=== PATIENT | male | born 1960 | race Caucasian/White ===

== ENCOUNTER 2022-01-08 10:00 | Inpatient (IN) | payer BC, SELFPAY ==
[2022-01-08] VITALS (11 sets, daily range): BP systolic 133–175; BP diastolic 83–102; PULSE 59–97; RESP 16–20; TEMP 36.8–37.1; O2SAT 95–98; BMI 28.1
--- NOTE | 2022-01-08 10:20 | XR_ITS ---
WS: [id number] Portable AP upright chest, 01/08/2022 Clinical Data: missed stroke Comparison: None. Findings: No nodules, masses or effusions are seen. The heart is normal. The pulmonary vascularity is not increased. No pneumonia or pneumothorax is seen. Monitor leads are on the chest wall. XR/XR chest 1V portable [id number] Impression: Negative chest.
--- NOTE | 2022-01-08 10:21 | CT_ITS ---
WS: [email or web address] CT scan of the head, 01/08/2022 Clinical Data: Symptoms of Acute Stroke Comparison: None. DLP: 802.[address] scans at [facility] use at least one of these dose optimization techniques: automated e xposure control; mA and/or kV adjustment per patient size (includes targeted exams where dose is matc hed to clinical indication); or iterative reconstruction. Findings: The ventricular system is minimally dilated without shift. No recent infarct or hemorrhage is seen. T here are no abnormal intracerebral masses. The cerebellum and brainstem are not remarkable. Bony windows of the skull and skull base show no fractures or erosions. The mastoid air cells, help desk intern al auditory canals, sella turcica, intraorbital contents, and paranasal sinuses are unremarkable. CT/CT head wo con* [id number] Impression: 1. Mild cerebral atrophy, no acute infarct or hemorrhage is seen. 2. The emergency room was notified at 1040 hours.
--- NOTE | 2022-01-08 10:21 | ECG_ITS ---
[facility] Test Date: 2022-01-08 Pat Name: Eliazar Gomez Department: Room: Gender: Male Manager Outpatient: : 1960 Requested By: Roberto Strauss Order Number: [id number] Mellissa MD: Ameya Woods M.D. Measurements Intervals [place] Rate: 62 P: 47 AR: 162 QRS: -16 QRSD: 78 T: 66 QT: 402 QTc: 409 Interpretive Statements SINUS RHYTHM No previous ECG available for comparison Electronically Signed On 01-08-2022 20:43:21 CDT by Ameya Woods M.D. [id number]
[2022-01-08 10:25] LABS: Glucose Point of Care 312 mg/dL (70-110)
--- NOTE | 2022-01-08 10:26 | W.ED.GENADLT ---
HPI - General Adult General: Chief complaint: Weakness Stated complaint: stoke like symptoms Time Seen by Provider: 01/08/22 10:12 History of Present Illness: Patient is a 61-year-old male with hx of HTN not on medication presents the emergency room for evaluation of left-sided weakness. Patient was last seen normal around 10:00pm when patient was at home with his daughter and his . Around 2 AM this morning, patient noted that he has had left-sided weakness and facial droop. Since, patient symptom has not improved. Patient denies any anticoagulation. Patient denies any nausea/vomiting, fever/chill, chest pain, shortness of breath, abdominal pain, dysuria/hematuria/polyuria, diarrhea/melena/hematochezia. Onset:last seen normal was 10 pm Duration:ongoing Location:home Severity:moderate Associated symptoms: Deny chest pain, dyspnea, nausea, rash, palpitations or vomiting Review of Systems Const: Denies: fever(s) or chills Eyes: Denies: change in vision ENMT: Denies: mouth pain Card: Denies: chest pain or palpitations Resp: Denies: dyspnea or non-productive cough GI: Denies: abdominal pain, nausea, vomiting or diarrhea : Denies: dysuria Musc: Denies: extremity pain Skin/Breast: Denies: rash or new lesions Neuro: Reports: weakness in extremities (+L arm/leg weakness, +L sided facial droop) Psych: Reports: other (Normal mood) Santiago/Lymph: Denies: easy bruising PFSH ED PFSH: Medical History (Updated 01/08/22 @ 16:10 by Rashaun Trejo MD) Hypertension Type 2 diabetes mellitus Surgical History (Updated 01/08/22 @ 16:10 by Rashaun Trejo MD) No significant past surgical history Family History (Updated 01/08/22 @ 16:10 by Rashaun Trejo MD) Other CAD (coronary artery disease) Hypertension Stroke Social History (Updated 01/08/22 @ 16:11 by Rashaun Trejo MD) Smoking and tobacco status: former smoker Alcohol intake: current Alcohol intake frequency: few times a week Caregiver/support person: Yes Lives independently: Yes Household members: spouse Housing: House Marital status: Current occupational status: retired Physical Exam Const: COMMON NORMALS: alert HENMT: COMMON NORMALS: atraumatic HEAD & SCALP: atraumatic MOUTH: moist mucous membranes not abnormal Eye: COMMON NORMALS: EOMs intact bilaterally and conjunctivae normal CONJUNCTIVA: Yes conjunctivae normal Neck/C-Spine: COMMON NORMALS: full ROM and supple Resp: COMMON NORMALS: normal respiratory effort and clear to auscultation bilaterally AUSCULTATION: clear to auscultation bilaterally Cardio: COMMON NORMALS: regular rate RATE: regular rate GI: COMMON NORMALS: Soft to palpation and non-tender PALPATION: Yes Soft to palpation Extremity: COMMON NORMALS: full ROM Neuro: SENSORIUM/ORIENTATION: Yes alert OTHER: NIHSS 5 1. Level of Consciousness A) LOC Responsiveness 0 B) LOC Questions 0 C) LOC Commands 0 2. Horizontal Eye Movement 0 3. Visual field test 0 4. Facial Palsy 1 5. Motor Arm 1 6. Motor Leg 1 7. Limb Ataxia 2 8. Sensation 0 9. Language 0 10. Speech 0 11. Extinction and Inattention 0 PSYCH: Normal mood and affect. Psych: COMMON NORMALS: speech normal SPEECH: Yes normal speech MOOD & AFFECT: Yes euthymic mood Course Vital Signs: Vital signs: Vital Signs Temperature 97.7 F 01/12/22 11:51 Pulse Rate 60 01/12/22 11:51 Respiratory Rate 19 H 01/12/22 11:51 Blood Pressure 137/74 01/12/22 11:51 Pulse Oximetry 95 01/12/22 11:51 [facility] - General Adult Medical Decision Making 61-year-old male with history of hypertension presenting to the emergency room with concerns of left-sided weakness and facial droop. On physical exam, patient has NIH stroke scale of 5. Patient is outside of the stroke window at this time. CT head did not show any signs of brain bleed. Case was discussed with [facility] provider Dr. Noe who recommended admission and close observation. MR should pontine stroke. Patient is outside the window for TPA. Patient does not have any large vessel occlusion. She will be admitted for medical management. Disposition: admission Lab Data : 01/11/22 03:44 01/11/22 03:44 Radiology Impressions Chest X-Ray 01/08/22 10:20 Impression: Negative chest. Head MRI 01/08/22 11:18 IMPRESSION: 1. Acute focal RIGHT pontine infarct without hemorrhage. 2. Otherwise. Mild atrophy and small vessel ischemic disease. 3. No acute thrombus is noted in the basilar or posterior cerebral artery. Head MRA 01/08/22 11:19 IMPRESSION: 1. Moderate stenosis and narrowing involving the distal RIGHT vertebral artery. No thrombus identified. Stenosis may be congenital or due to thrombus resulting in stenosis. No occlusion. 2. Patent basilar artery. 3. No aneurysms. Neck MRA 01/08/22 11:19 IMPRESSION: Nondiagnostic evaluation of the carotid arteries. Head CT 01/09/22 11:19 IMPRESSION: When compared with 01/08/2022, there is an evolving infarct in the right ave. No associated hemorrhage. Laboratory Results WBC 7.3 10^3/uL (4.0-10.0) 01/08/22 10:20 RBC 4.78 10^6/uL (4.1-5.3) 01/08/22 10:20 Hgb 14.7 g/dL (11.7-16.6) 01/08/22 10:20 Hct 42.2 % (42.0-52.0) 01/08/22 10:20 MCV 88.3 fl (80-94) 01/08/22 10:20 MCH 30.8 pg (28.0-34.0) 01/08/22 10:20 MCHC 34.8 g/dL (30.0-36.0) 01/08/22 10:20 RDW 13.2 % (12.1-15.1) 01/08/22 10:20 Plt Count 275 10^3/cmm (130-400) 01/08/22 10:20 MPV 10.1 fL (7.4-10.4) 01/08/22 10:20 Neut % (Auto) 70.9 % 01/08/22 10:20 Lymph % (Auto) 20.0 % 01/08/22 10:20 [place] % (Auto) 7.1 % 01/08/22 10:20 Eos % (Auto) 1.1 % 01/08/22 10:20 Baso % (Auto) 0.5 % 01/08/22 10:20 Neut # (Auto) 5.18 10^3/uL (1.8-7.7) 01/08/22 10:20 Lymph # (Auto) 1.5 10^3/uL (0.8-4.8) 01/08/22 10:20 [place] # (Auto) 0.5 10^3/uL (0.2-0.9) 01/08/22 10:20 Eos # (Auto) 0.1 10^3/uL (0.0-0.8) 01/08/22 10:20 Baso # (Auto) 0.0 10^3/uL (0.0-0.1) 01/08/22 10:20 Nucleated RBC % (auto) 0 % 01/08/22 10:20 Nucleated RBCs # 0.0 /100WBC 01/08/22 10:20 PT 14.50 SECONDS (12.1-14.9) 01/08/22 10:20 INR 1.09 (0.8-1.2) 01/08/22 10:20 APTT 26.0 SECONDS (23.9-36.7) 01/08/22 10:20 Sodium 133 mmol/L (136-145) L 01/08/22 10:20 Potassium 4.2 mmol/L (3.5-5.1) 01/08/22 10:20 Chloride 98 mmol/L (98-107) 01/08/22 10:20 Carbon Dioxide 22 mmol/L (22-29) 01/08/22 10:20 Anion Gap 17.2 (5-19) 01/08/22 10:20 BUN 14 mg/dL (8-23) 01/08/22 10:20 Creatinine 0.9 mg/dL (0.7-1.2) 01/08/22 10:20 GFR Calculation 85.2 mL/min (90-130) L 01/08/22 10:20 Glucose 322 mg/dL (65-115) H 01/08/22 10:20 POC Glucose 312 mg/dL (70-110) H 01/08/22 10:17 Calculated Osmolality 289 mOsm/kg (285-295) 01/08/22 10:20 Calcium 9.5 mg/dL (8.5-10.5) 01/08/22 10:20 Iron 176 ug/dL (59-158) H 01/08/22 10:20 TIBC 318 mcg/dl 01/08/22 10:20 % Saturation 55.3 % (20-50) H 01/08/22 10:20 Unsat Iron Binding 142 ug/dL (112-347) 01/08/22 10:20 Total Bilirubin 0.7 mg/dL (0.15-1.2) 01/08/22 10:20 AST 16 U/L (0-40) 01/08/22 10:20 ALT 26 U/L (0-41) 01/08/22 10:20 Alkaline Phosphatase 68 IU/L (40-130) 01/08/22 10:20 Troponin T Baseline 15 ng/L (0-15) 01/08/22 10:20 Total Protein 7.1 g/dL (6.6-8.7) 01/08/22 10:20 Albumin 4.8 g/dL (3.5-5.2) 01/08/22 10:20 Globulin 2.3 g/dL (1.3-4.6) 01/08/22 10:20 TSH 1.18 uIU/mL (0.27-4.20) 01/08/22 10:20 Ethyl Alcohol < 10 mg/dL (0-10) 01/08/22 10:20 Imaging Data Other Imaging: Radiologist's impression: [address] [place] [address] Magnetic Resonance Report Signed Patient: Eliazar Gomez Unit #: [id number] : 1960 Age/Sex: 61 / M ADM Date: 01/08/22 Loc: ER Room/Bed: Attending Dr: Ordering Provider/Ordering MD: Roberto Strauss MD Date of Service: 01/08/22 Procedure(s): MR head wo con* [id number] Accession Number(s): [id number] Report Number: [id number] WS: [id number] MRI BRAIN WITHOUT CONTRAST HISTORY: ischemic stroke COMPARISON: Noncontrast CT 01/08/2022. TECHNIQUE: Diffusion imaging, multiplanar T1, T2 and FLAIR imaging obtained. Acute ischemic stroke in the RIGHT ave. Diffusion-weighted abnormality is focal to the ave and does not cross the midline. No additional acute infarcts or diffusion-weighted abnormalities. Mild atrophy and very minimal small vessel ischemic disease otherwise. Ventricles and extra-axial spaces are normal. No inferior displacement of cerebellar tonsils. The sella turcica and pituitary gland are unremarkable. No signal abnormality in the dural venous sinuses. Very small caliber distal RIGHT vertebral artery. No thrombus is evident in the dominant LEFT vertebral artery. No acute thrombosis is noted within the branches of the basilar or posterior cerebral artery. Paranasal sinuses: Clear. Mastoid air cells: Normal. Calvarium and scalp: Intact. MR/MR head wo con* [id number] IMPRESSION: ? 1.? Acute focal RIGHT pontine infarct without hemorrhage. 2.? Otherwise. Mild atrophy and small vessel ischemic disease. 3.? No acute thrombus is noted in the basilar or posterior cerebral artery. ? ? Dictated By: Corine Storm DO Signed By: Corine Storm DO Signed Date/Time: 01/08/22 1309 DD/ 1259 JasonEliazar Lima??62??M??1960 ? Allergy/Adv: No Known Allergies Close Carotid Doppler Study (Signed) Maximino Milian - 01/12/[address] (Signed) Mag Light - 01/09/22 Neck Magnetic Resonance Angiography (Signed) Corine Storm - 01/08/22 Head Magnetic Resonance Angiography (Signed) Corine Storm - 01/08/22 Head MRI (Signed) Corine Storm - 01/08/[address] (Signed) Cassia Read - 01/08/22 Chest X-Ray (Signed) Cassia Read - 01/08/22 Launch?[place] [address] XRay Report Signed Patient: Eliazar Gomez Janie Unit #: [id number] : 1960 Age/Sex: 61 / M ADM Date: 01/08/22 Loc: ER Room/Bed: Attending Dr: Ordering Provider/Ordering MD: Roberto Strauss MD Date of Service: 01/08/22 Procedure(s): XR chest 1V portable [id number] Accession Number(s): [id number] Report Number: [id number] WS: [email or web address] Portable AP upright chest, 01/08/2022 Clinical Data: missed stroke Comparison: None. Findings: No nodules, masses or effusions are seen. The heart is normal. The pulmonary vascularity is not increased. No pneumonia or pneumothorax is seen. Monitor leads are on the chest wall. XR/XR chest 1V portable [id number] Impression: Negative chest. ? Dictated By: Cassia Read MD Signed By: Cassia Read MD Signed Date/Time: 01/08/22 1046 DD/ [address] [address] [address] Scan Report Signed Patient: Eliazar Gomez Unit #: [id number] : 1960 Age/Sex: 61 / M ADM Date: 01/08/22 Loc: ER Room/Bed: Attending Dr: Ordering Provider/Ordering MD: Roberto Strauss MD Date of Service: 01/08/22 Procedure(s): CT head wo con* [id number] Accession Number(s): [id number] Report Number: [id number] WS: [email or web address] CT scan of the head, 01/08/2022 Clinical Data: Symptoms of Acute Stroke Comparison: None. DLP: 802.[address] scans at [facility] use at least one of these dose optimization techniques: automated exposure control; mA and/or kV adjustment per patient size (includes targeted exams where dose is matched to clinical indication); or iterative reconstruction. Findings: The ventricular system is minimally dilated without shift. No recent infarct or hemorrhage is seen. There are no abnormal intracerebral masses. The cerebellum and brainstem are not remarkable. Bony windows of the skull and skull base show no fractures or erosions. The mastoid air cells, internal auditory canals, sella turcica, intraorbital contents, and paranasal sinuses are unremarkable. CT/CT head wo con* [id number] Impression: ? 1. Mild cerebral atrophy, no acute infarct or hemorrhage is seen. 2. The emergency room was notified at 1040 hours. ? Dictated By: Cassia Read MD Signed By: Cassia Read MD Signed Date/Time: 01/08/22 1035 DD/ 1030 Discharge Plan Discharge Patient Disposition: Admitted As Inpatient Admit Provider: Rashaun Trejo Clinical Impression: Ischemic stroke Condition: Stable Discharge Diet: Cardiac and Diabetic Discharge Activity: Increase activity as tolerated Coding Level of Care Code ED Concrete Hopper Operator for Chg Fwd Exam Comprehensive
[2022-01-08 10:39] LABS: Basophils % 0.5 %; Eosinophils # 0.1 10^3/uL (0.0-0.8); Eosinophils % 1.1 %; Hematocrit 42.2 % (42.0-52.0); Hemoglobin 14.7 g/dL (11.7-16.6); Lymphocytes # 1.5 10^3/uL (0.8-4.8); Mean Corpuscular HGB Conc 34.8 g/dL (30.0-36.0); Mean Corpuscular Hemoglobin 30.8 pg (28.0-34.0); Mean Corpuscular Volume 88.3 fl (80-94); Mean Platelet Volume 10.1 fL (7.4-10.4); Monocytes # 0.5 10^3/uL (0.2-0.9); Monocytes % 7.1 %; Neutrophils # 5.18 10^3/uL (1.8-7.7); Neutrophils % 70.9 %; Nucleated Red Blood Cells % 0 %; Platelet Count 275 10^3/cmm (130-400); Red Blood Count 4.78 10^6/uL (4.1-5.3); Red Cell Distribution Width 13.2 % (12.1-15.1); White Blood Count 7.3 10^3/uL (4.0-10.0)
[2022-01-08 10:47] LABS: INR 1.09 (0.8-1.2)
--- NOTE | 2022-01-08 10:53 | PC.PHAR ---
pt and pts verified medications-pts states the pt was just started on a 81mg aspirin at bedtime on 01/07/22-pt and pts states the dr just increased lisinopril 40mg daily on 01/07/22-pt states he has been taking 20mg daily ext med history shows last filled 07/24/21 30d/s pt states he had a build up of this medication-notes are made in the pharmacy comments
[2022-01-08 11:12] LABS: Alanine Aminotransferase 26 U/L (0-41); Albumin Level 4.8 g/dL (3.5-5.2); Alkaline Phosphatase 68 IU/L (40-130); Anion Gap 17.2 (5-19); Aspartate Amino Transferase 16 U/L (0-40); Blood Urea Nitrogen 14 mg/dL (8-23); Calcium 9.5 mg/dL (8.5-10.5); Carbon Dioxide 22 mmol/L (22-29); Chloride 98 mmol/L (98-107); Globulin 2.3 g/dL (1.3-4.6); Glomerular Filtration Rate 85.2 mL/min (90-130); Glucose 322 mg/dL (65-115); Osmolality Calculated 289 mOsm/kg (285-295); Potassium 4.2 mmol/L (3.5-5.1); Sodium 133 mmol/L (136-145); Total Bilirubin 0.7 mg/dL (0.15-1.2); Total Protein 7.1 g/dL (6.6-8.7)
[2022-01-08 11:13] LABS: Troponin(5th) Baseline 15 ng/L (0-15)
--- NOTE | 2022-01-08 11:13 | PC.NURSE ---
4910 Neurology at [place] contacted and will evaluated patient via telemed, MRI is recommended. Patient/family updated on plan of care. Patient remains stable
--- NOTE | 2022-01-08 11:18 | MR_ITS ---
WS: [email or web address] MRI BRAIN WITHOUT CONTRAST HISTORY: ischemic stroke COMPARISON: Noncontrast CT 01/08/2022. TECHNIQUE: Diffusion imaging, multiplanar T1, T2 and FLAIR imaging obtained. Acute ischemic stroke in the RIGHT ave. Diffusion-weighted abnormality is focal to the ave and does not cross the midline. No additional acute infarcts or diffusion-weighted abnormalities. Mild atrophy and very minimal small vessel ischemic disease otherwise. Ventricles and extra-axial spaces are normal. No inferior displacement of cerebellar tonsils. The sella turcica and pituitary gland are unremarkabl e. No signal abnormality in the dural venous sinuses. Very small caliber distal RIGHT vertebral artery. No thrombus is evident in the dominant LEFT vertebral artery. No acute thrombosis is noted within the branches of the basilar or posterior cerebral artery. Paranasal sinuses: Clear. Mastoid air cells: Normal. Calvarium and scalp: Intact. MR/MR head wo con* [id number] IMPRESSION: 1. Acute focal RIGHT pontine infarct without hemorrhage. 2. Otherwise. Mild atrophy and small vessel ischemic disease. 3. No acute thrombus is noted in the basilar or posterior cerebral artery.
--- NOTE | 2022-01-08 11:19 | MR_ITS ---
WS: [email or web address] MRA CAROTID ARTERIES with contrast. HISTORY: ischemic stroke COMPARISON: None available. TECHNIQUE: MRA is performed with intravenous gadolinium. MIP and source images are reviewed. ProHance 30 cc IV. This is essentially a nondiagnostic evaluation of the carotid arteries. 2-D rnfy-qz-geltth and postco ntrast imaging of the carotid arteries is performed. There is very little contrast noted within the v ertebral or carotid arteries. There is a short segment occlusion involving the distal RIGHT vertebral artery but due to the quality of this examination I cannot confirm this is not just simply artifact. MR/MR angio neck w con* [id number] IMPRESSION: Nondiagnostic evaluation of the carotid arteries.
--- NOTE | 2022-01-08 11:19 | MR_ITS ---
WS: [email or web address] MRA ANGIOGRAPHY [place] OF [place] HISTORY: ischemic stroke COMPARISON: MRI brain TECHNIQUE: 3-D MR angiography is performed of the [place]. All images are reviewed including source images. Small caliber distal RIGHT vertebral artery without occlusion. Artery becomes very small caliber as i t crosses anterior to the brainstem to the LEFT before joining the LEFT vertebral artery. Basilar art shanique is patent with no thrombus. Neither posterior inferior cerebellar artery identified. The superior cerebellar arteries are both identified with the RIGHT being smaller caliber. Intracranial portion of the internal carotid arteries are normal course and caliber. No significant a therosclerosis, stenosis or aneurysm identified. Middle and anterior cerebral arteries are both paten t with no significant disease. Anterior communicating artery is also normal. Posterior communicating arteries are both small caliber but patent. MR/MR angio head wo con [id number] IMPRESSION: 1. Moderate stenosis and narrowing involving the distal RIGHT vertebral artery . No thrombus identified. Stenosis may be congenital or due to thrombus resulti ng in stenosis. No occlusion. 2. Patent basilar artery. 3. No aneurysms.
--- NOTE | 2022-01-08 12:21 | ECG_ITS ---
[facility] Test Date: 2022-01-08 Pat Name: Eliazar Gomez Department: Room: Gender: Male Treatment Supervisor: : 1960 Requested By: Roberto Strauss Order Number: [id number] Mellissa MD: Ameya Woods M.D. Measurements Intervals [place] Rate: 80 P: 48 [place]: 159 QRS: 1 QRSD: 83 T: 73 QT: 384 QTc: 444 Interpretive Statements SINUS RHYTHM Compared to ECG 01/08/2022 10:47:56 No significant changes Electronically Signed On 01-08-2022 20:46:12 CDT by Ameya Woods M.D. [id number]
[2022-01-08 14:21] LABS: Troponin 5 2HR 13.17 ng/L (0-15)
[2022-01-08 14:43] LABS: Troponin 5 2HR Delta -1.83 ABS# (0-10)
[2022-01-08 14:48] LABS: Protein Urine Neg (Negative); Specific Gravity, Urine 1.015 (1.005-1.030); Urine Appearance Clear (CLEAR); Urine Color Yellow (Yellow); pH Urine 5 (5-7)
[2022-01-08 14:49] LABS: Add Urine Microscopic? YES; Bilirubin Urine Neg (Negative); Blood Urine Neg (Negative); Glucose Urine UA 4+ (Normal); Ketones Urine Negative (Negative); Leukocyte Esterase Urine Negative (Negative); Nitrate Urine Negative (Negative); Sulfosalicylic Acid Urine Negative (Negative); Urobilinogen Urine Norm (Negative)
[2022-01-08 14:51] LABS: Squamous Epithelial Cell Urine 0-4 /hpf (0-5)
--- NOTE | 2022-01-08 16:01 | USCV_ITS ---
Eliazar Gomez Age: 61 Gender: M : 1960 Exam Date: 01/08/2022 16:42 Ordering Phys: Rashaun Trejo MD Technologist: KEYSHAWN Exam Location: [facility] [place] Indication: Stroke BP: 145 / 89 HR: 53 Rhythm: Sinus Technical Quality: Adequate MEASUREMENTS (Male / Female) Normal Values 2D ECHO LV Diastolic Diameter PLAX 4.1 cm 4.2 - 5.9 / 3.9 - 5.3 cm LV Systolic Diameter PLAX 2.6 cm IVS Diastolic Thickness 1.1 cm 0.6 - 1.0 / 0.6 - 0.9 cm IVS Systolic Thickness 1.5 cm LVPW Diastolic Thickness 1.3 cm 0.6 - 1.0 / 0.6 - 0.9 cm LVPW Systolic Thickness 1.4 cm LVOT Diameter 2.0 cm LV Ejection Fraction 2D Teich 66.3 % LV Ejection Fraction MOD 2C 64.4 % LV Ejection Fraction 2C AL 65.4 % LA Diameter 3.8 cm Aorta at Sinotubular Diameter 2.7 cm IVC Diameter 1.9 cm M-MODE Aortic Annulus Diameter 3.1 cm LA Ao Ratio MM 1.2 MV E Point Septal Separation 0.4 cm DOPPLER AV Peak Velocity 116.0 cm/s LVOT Peak Velocity 101.0 cm/s AV Area Cont Eq vti 3.5 cm squared AV Area Cont Eq pk 2.8 cm squared MV Area PHT 4.2 cm squared Mitral E to A Ratio 1.0 MV E' Velocity 46.8 cm/s Mitral E to MV E' Ratio 9.9 Mitral E to LV E' Lateral Ratio 7.8 Mitral E to LV E' Septal Ratio 13.4 Right Atrial Pressure 8.0 mmHg PV Peak Velocity 80.0 cm/s RV Acceleration Time 0.1 s RV Ejection Time 0.3 s RV AcT/ET 0.4 FINDINGS Left Ventricle Normal left ventricular size, systolic function and wall thickness, with no regional wall motion abnormalities. Left ventricular ejection fraction is estimated at 60-65 %. Normal diastolic function. Right Ventricle Normal right ventricular size and systolic function. Right Atrium Normal right atrial size. No intracardiac shunt by agitated saline (bubble) study. Left Atrium Normal left atrial size. Mitral Valve Structurally normal mitral valve. No mitral valve stenosis. Trace mitral valve regurgitation. Aortic Valve Structurally normal trileaflet aortic valve. No aortic valve stenosis. No aortic valve regurgitation. Tricuspid Valve Structurally normal tricuspid valve. Trace tricuspid valve regurgitation. Pulmonic Valve Pulmonic valve not well visualized. No pulmonary valve stenosis. No pulmonary valve regurgitation. Pericardium No pericardial effusion. Aorta Normal size aortic root and proximal ascending aorta. IVC Inferior vena cava not visualized. CONCLUSIONS 1. Normal left ventricular size, systolic function and wall thickness, with no regional wall motion abnormalities. Left ventricular ejection fraction is estimated at 60-65 %. Normal diastolic function. 2. No intracardiac shunt by agitated saline (bubble) study. 3. No prior similar studies to compare. Caron Madrid MD (Electronically Signed) Final Date: 08 January 2022 19:00 S
--- NOTE | 2022-01-08 16:07 | P.HP_ITS ---
Providers/Chief Complaint Admitting Physician: Rashaun Trejo MD Chief Complaint: stoke like symptoms History of Present Illness Eliazar Gomez is a 61 year old male with past medical history of hypertension, type 2 diabetes mellitus on metformin, retired who presented to the ER today because of weakness on the left side of his body along with slurring of speech. As per the patient and at bedside patient started having symptoms on Tuesday night(today is Tuesday). After the patient he started having heaviness in the left side of his body high-grade Night which was resolved with any slept overnight. On afternoon he started having slurring of speech and some difficulty in forming words which he thought was from tiredness so he went to sleep. He went to urgent care yesterday and he was given aspirin and fluid for hydration. Today morning when he woke up he was having extreme weakness on the left side along with slurring of speech so he presented to the ER. In the ER he was found to have NIH score of 5. Case was discussed with neurologist at [facility] who recommended against tPA as patient was out of window and several MRIs which have been done. Patient's presentation blood pressure was 170 systolic he was given labetalol 10 mg 1 time. Review of Systems General: Reports: 10 or more systems reviewed and unremarkable except in HPI and below Const: Denies: fever(s), chills, body aches, change in appetite, change in weight, malaise, night sweats, diaphoresis, change in sleep pattern, daytime sleepiness or snoring Eyes: Denies: change in vision, blurry vision, photophobia, eye discomfort or eye discharge ENMT: Denies: throat pain, enlarged tonsils, hoarseness, mouth pain, oral sores, dry mouth, tinnitus, nasal congestion or post nasal drip Card: Denies: chest pain, palpitations, irregular heart rhythm, edema, swelling of feet/ankles, lightheadedness, syncope, pre-syncope, dyspnea on exertion, orthopnea, leg pain with exertion or acrocyanosis Resp: Denies: dyspnea, productive cough, non-productive cough, wheezing, stridor, pain on inspiration, change in phlegm color, hemoptysis or chest congestion GI: Denies: abdominal pain, nausea, vomiting, hematemesis, coffee ground emesis, dysphagia, heartburn, diarrhea, constipation, bloating, GI cramping, change in bowel habits, pain on defecation, hematochezia or melena : Denies: flank pain, difficulty urinating, dysuria, urinary frequency, urinary urgency, urinary hesitancy, urinary dribbling, difficulty starting urination, change in urine stream, nocturia or hematuria Musc: Denies: neck pain, back pain, extremity pain, joint pain, joint swelling, joint redness, joint stiffness or limited range of motion Neuro: Denies: headache(s), numbness in extremities, weakness in extremities, sensory changes, lack of coordination, difficulty walking, frequent falls, dizziness, vertigo, confusion, Slurred speech present, difficulty communicating thoughts or seizure-like activity Psych: Denies: anxiety, depression, mood swings, panic attacks, hopelessness or irritability Endo: Denies: polyuria, polydipsia, tired all the time, cold intolerance, excessive sweating, flushing or heat intolerance Santiago/Lymph: Denies: easy bruising or easy bleeding All/Imm: Denies: tongue swelling, facial swelling or acute wheezing Medications/Allergies Home Medications Medication Instructions Recorded Confirmed Last Taken Type aspirin 81 mg tablet,delayed 81 mg PO BEDTIME 01/08/22 01/08/22 01/07/22 History release fluticasone propionate 50 2 spray INTRANASAL DAILY 01/08/22 01/08/22 Unknown History mcg/actuation nasal spray,suspension lisinopril 20 mg tablet 40 mg PO QAM 01/08/22 01/08/22 01/08/22 09:00 History see pharmacy comment metformin 500 mg tablet,extended 500 mg PO QPM 01/08/22 01/08/22 01/07/22 History release 24 hr multivitamin 1 tab PO DAILY 01/08/22 01/08/22 Unknown History Allergies Allergy/AdvReac Type Severity Reaction Status Date / Time No Known Allergies Allergy Verified 01/08/22 10:35 PFSH Acute PFSH: Medical History (Updated 01/08/22 @ 16:10 by Rashaun Trejo MD) Hypertension Type 2 diabetes mellitus Surgical History (Updated 01/08/22 @ 16:10 by Rashaun Trejo MD) No significant past surgical history Family History (Updated 01/08/22 @ 16:10 by Rashaun Trejo MD) Other CAD (coronary artery disease) Hypertension Stroke Social History (Updated 01/08/22 @ 16:11 by Rashaun Trejo MD) Smoking and tobacco status: former smoker Alcohol intake: current Alcohol intake frequency: few times a week Substance/Drug Use: never Caregiver/support person: Yes Lives independently: Yes Household members: spouse Housing: House Marital status: Current occupational status: retired Vitals/I&O/Wt Last Vital Signs Temp 98.8 F 01/08/22 10:07 Pulse 97 01/08/22 14:30 Resp 18 01/08/22 14:30 BP 145/89 01/08/22 14:30 Pulse Ox 98 01/08/22 14:30 Weight last 48 hrs Weight 83.915 kg Weight 83.915 kg Physical Exam Narrative: General: No acute distress, AO x3 HEENT: PERRLA, pupils bilaterally equal and reactive Chest: Normal vesicular breath sounds, no added sounds, equal good air entry bilaterally CVS: S1-S2 regular, soft ejection systolic murmur at aortic area, no tachycardia, no gallops, no rubs Abdomen: Soft, nontender, no organomegaly, bowel sounds present Neuro: No focal deficits, AOx3, power 2/5 left upper and lower limb, facial droop, pupils bilaterally equal and reactive Data : 01/08/22 10:20 01/08/22 10:20 A&P Assessment and plan (1) Right pontine stroke: Appreciate several MRI head and MRA head and neck done in the ER. Aspirin, Plavix, statin. Ruled out of tPA window as per conversation with neurologist at [facility]. Check echocardiogram with bubble study Telemetry. Check lipid panel, A1c, alcohol level, urine drug screen. Check TSH level. PT/OT/speech evaluation. Advance diet accordingly. Status: Acute (2) Type 2 diabetes mellitus: Insulin sliding scale moderate dose protocol. Hold off on OHA's. Status: Acute (3) Hypertension: Permissible hypertension. Hold off on antihypertensives. Goal blood pressure around 180/110 mmHg. Labetalol if blood pressure goes over 200/110 mmHg. Status: Acute Plan Analgesia: Tylenol as needed Glycemic control: Moderate insulin sliding scale Nutrition: Dysphagia level 3 carb consistent diet CODE STATUS: Full code PUD prophylaxis: Famotidine DVT prophylaxis: Heparin 5000 every 8 hourly Discharge planning: Plan to discharge home with home health possibly for further physical therapy given right pontine stroke Admit to [facility] with telemetry Attestations Medical Necessity Statement*: Admission for more than 2 midnights for management of right pontine stroke Time Spent in Patient Care: Greater than 35 minutes Coding Level of Care Code Acute Field Ring Assembler for Tae Friend Diagnoses Right pontine stroke I63.50 Type 2 diabetes mellitus E11.9 Hypertension I10
--- NOTE | 2022-01-08 16:21 | ECG_ITS ---
[facility] Test Date: 2022-01-08 Pat Name: Eliazar Gomez Department: Room: 269 Gender: Male Medical Records Administrator: : 1960 Requested By: Roberto Strauss Order Number: [id number] Mellissa MD: Ameya Woods M.D. Measurements Intervals [place] Rate: 61 P: 26 OR: 164 QRS: -7 QRSD: 82 T: 52 QT: 413 QTc: 416 Interpretive Statements SINUS RHYTHM SEPTAL MYOCARDIAL INFARCTION , OF INDETERMINATE AGE [40+ ms Q WAVE IN V1/V2] Compared to ECG 01/08/2022 13:32:11 Myocardial infarct finding now present Electronically Signed On 01-08-2022 20:44:57 CDT by Ameya Woods M.D. [id number]
[2022-01-08 16:31] LABS: Amphetamines Screen Urine Negative (Negative); Barbiturates Screen Urine Negative (Negative); Benzodiazepines Screen Urine Negative (Negative); Cocaine Screen Urine Negative (Negative); Opiate Screen Urine Negative (Negative); PCP Screen Urine Negative (Negative); THC Screen Urine Negative (Negative)
[2022-01-08 17:08] LABS: Iron 176 ug/dL (59-158); Percent Saturation 55.3 % (20-50); Thyroid Stimulating Hormone 1.18 uIU/mL (0.27-4.20); Total Iron Binding Capacity 318 mcg/dl; Unsaturated Iron Binding 142 ug/dL (112-347)
[2022-01-08 17:10] LABS: Alcohol Level < 10 mg/dL (0-10)
[2022-01-08 17:42] LABS: Troponin 5 6HR Delta -0.57 ng/L (0-12)
[2022-01-08] MEDS: clopidogrel 300 mg Tablet PO (17:45)
[2022-01-08] MEDS: heparin 5,000 unit/mL INJ 1 mL 5000 UNIT SUBCUT (17:45)
[2022-01-08] MEDS: atorvastatin 40 mg Tablet 20 MG PO (21:22)
[2022-01-08] MEDS: insulin lispro 100 unit/1 mL SUBCUT (21:24)
[2022-01-08 22:22] LABS: Glucose Point of Care 215 mg/dL (70-110)
[2022-01-09] VITALS (10 sets, daily range): BP systolic 117–139; BP diastolic 73–94; PULSE 55–90; RESP 16–18; TEMP 36.5–36.8; O2SAT 94–99
[2022-01-09] MEDS: heparin 5,000 unit/mL INJ 1 mL 5000 UNIT SUBCUT ×3 (00:43→16:40)
[2022-01-09 04:08] LABS: Basophils # 0.1 10^3/uL (0.0-0.1); Basophils % 0.6 %; Eosinophils # 0.1 10^3/uL (0.0-0.8); Eosinophils % 1.1 %; Hematocrit 41.2 % (42.0-52.0); Hemoglobin 14.2 g/dL (11.7-16.6); Lymphocytes # 2.5 10^3/uL (0.8-4.8); Lymphocytes % 27.9 %; Mean Corpuscular HGB Conc 34.5 g/dL (30.0-36.0); Mean Corpuscular Hemoglobin 31.3 pg (28.0-34.0); Mean Corpuscular Volume 90.7 fl (80-94); Mean Platelet Volume 10.3 fL (7.4-10.4); Monocytes # 0.7 10^3/uL (0.2-0.9); Monocytes % 8.3 %; Neutrophils # 5.44 10^3/uL (1.8-7.7); Neutrophils % 61.8 %; Nucleated Red Blood Cells % 0 %; Platelet Count 266 10^3/cmm (130-400); Red Blood Count 4.54 10^6/uL (4.1-5.3); Red Cell Distribution Width 13.6 % (12.1-15.1); White Blood Count 8.8 10^3/uL (4.0-10.0)
[2022-01-09 04:27] LABS: Alanine Aminotransferase 25 U/L (0-41); Albumin Level 4.3 g/dL (3.5-5.2); Alkaline Phosphatase 61 IU/L (40-130); Anion Gap 15.7 (5-19); Aspartate Amino Transferase 17 U/L (0-40); Blood Urea Nitrogen 15 mg/dL (8-23); Calcium 8.9 mg/dL (8.5-10.5); Carbon Dioxide 24 mmol/L (22-29); Chloride 105 mmol/L (98-107); Chol HDL Ratio 4.33 mg/dL (1.0-5.00); Cholesterol 186 mg/dL (0-200); Globulin 2.3 g/dL (1.3-4.6); Glucose 174 mg/dL (65-115); HDL Cholesterol 43 mg/dL (60-100); LDL Cholesterol Calculated 110 mg/dL (50-129); LDL HDL Ratio 2.56 RATIO (0.00-3.22); Osmolality Calculated 297 mOsm/kg (285-295); Potassium 3.7 mmol/L (3.5-5.1); Sodium 141 mmol/L (136-145); Total Bilirubin 0.7 mg/dL (0.15-1.2); Total Protein 6.6 g/dL (6.6-8.7); Triglycerides 165 mg/dL (0-150)
[2022-01-09 04:31] LABS: Estmated Average Glucose 229; Hemoglobin A1C 9.6 % (4.0-6.0)
[2022-01-09 06:37] LABS: Glucose Point of Care 222 mg/dL (70-110)
[2022-01-09] MEDS: aspirin 81 mg EC Tablet PO (09:23)
[2022-01-09] MEDS: clopidogrel 75 mg Tablet PO (09:23)
[2022-01-09] MEDS: insulin lispro 100 unit/1 mL SUBCUT ×4 (09:23→21:19)
--- NOTE | 2022-01-09 11:19 | CTR_ITS ---
PROCEDURE INFORMATION: Exam: CT Head Without Contrast Exam date and time: 01/09/2022 2:36 PM Age: 62 years old Clinical indication: Weakness, extremity; Left; Additional info: Stroke TECHNIQUE: Imaging protocol: Computed tomography of the head without contrast. Radiation optimization: All CT scans at this facility use at least one of these dose optimization techniques: automated exposure control; mA and/or kV adjustment per patient size (includes targeted exams where dose is matched to clinical indication); or iterative reconstruction. COMPARISON: MR head wo con* [id number] 01/08/2022 12:[address] head dated 01/08/2022 RADIATION DOSE METRICS: Total DLP (mGy-cm): 806.5 FINDINGS: Brain: There is 1.3 cm hypodensity in the ave on series 2, image 13. No associated hemorrhage. There are old lacunes in the bilateral basal ganglia.Moderate white matter disease and volume loss are identified. No hemorrhage. Cerebral ventricles: No ventriculomegaly. Paranasal sinuses: Visualized sinuses are unremarkable. No fluid levels. Mastoid air cells: Visualized mastoid air cells are well aerated. Bones/joints: Unremarkable. No acute fracture. Soft tissues: Unremarkable. CT/CT head wo con* [id number] IMPRESSION: When compared with 01/08/2022, there is an evolving infarct in the right ave. No associated hemorrhage.
[2022-01-09 11:48] LABS: Glucose Point of Care 240 mg/dL (70-110)
--- NOTE | 2022-01-09 13:22 | P.PN_ITS ---
Subjective Subjective: No events overnight. Seen with family at bedside. Working with physical therapy. 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 Able to tolerate diet. Concerned about rehab going forward. We discussed in detail regarding options going forward of possible placement to SNF versus acute rehab for further rehabilitation. Both patient and family is agreeable. But would want to think more and talk to pillowcase maker before making decision between SNF versus acute rehab. Patient's blood pressures have remained stable. Continues to remain on room air. Sitting up in chair on examination. Having occasional episodes of bradycardia. Vitals/I&O/Wt Last Vital Signs Temp 98.2 F 01/09/22 11:09 Pulse 59 L 01/09/22 11:09 Resp 17 01/09/22 11:09 BP 139/86 01/09/22 11:09 Pulse Ox 97 01/09/22 11:09 01/08/22 01/09/22 01/09/22 22:59 06:59 14:59 Intake Total 120 / 120 140 / 260 Output Total 800 / 800 300 / 1100 Balance -680 / -680 -160 / -840 Weight last 48 hrs Weight 83.915 kg Weight 83.915 kg Weight 83.915 kg Physical Exam Narrative: General: No acute distress, AO x3 HEENT: PERRLA, pupils bilaterally equal and reactive Chest: Normal vesicular breath sounds, no added sounds, equal good air entry bilaterally CVS: S1-S2 regular, soft ejection systolic murmur at aortic area, no tachycardia, no gallops, no rubs Abdomen: Soft, nontender, no organomegaly, bowel sounds present Neuro: No focal deficits, AOx3, flaccid paralysis of left upper and lower limb, facial droop, pupils bilaterally equal and reactive Data : 01/09/22 03:20 01/09/22 03:20 A&P Assessment and plan (1) Right pontine stroke: Appreciate several MRI head and MRA head and neck done in the ER. Goal blood pressure less than 140/90 mmHg now. Appreciate A1c, lipid panel results. Follow-up with PT/OT/speech evaluation. Will need placement to SNF versus acute rehab for further rehabitation. Repeat CT scan to rule out bleed given bradycardia. Continue with aspirin, Plavix, statin. Status: Acute (2) Type 2 diabetes mellitus: A1c 9.6. At home only on metformin. Will need to discharge on most likely to OHA's along with Lantus. Continue with insulin sliding scale. Will dose Lantus accordingly. Status: Acute (3) Hypertension: Permissible hypertension. Hold off on antihypertensives. Goal blood pressure around 140/90 mmHg. Blood pressures at goal. Will uptitrate start on medications accordingly. Status: Acute Plan Analgesia: Tylenol as needed Glycemic control: Moderate insulin sliding scale Nutrition: Dysphagia level 3 carb consistent diet CODE STATUS: Full code PUD prophylaxis: Famotidine DVT prophylaxis: Heparin 5000 every 8 hourly Discharge planning: Discharge to SNF versus acute rehab for further rehabitation. Case management alerted. Admit to [facility] with telemetry Attestations Medical Necessity Statement*: Further admission for post stroke care while safe discharge planning is sought. Time Spent in Patient Care: Greater than 35 minutes Coding Level of Care Code Acute Web Marketing Intern for Tae Friend Diagnoses Right pontine stroke I63.50 Type 2 diabetes mellitus E11.9 Hypertension I10
[2022-01-09] MEDS: atorvastatin 40 mg Tablet 20 MG PO (21:18)
[2022-01-09 22:00] LABS: Glucose Point of Care 202 mg/dL (70-110)
[2022-01-09 22:00] LABS: Glucose Point of Care 170 mg/dL (70-110)
[2022-01-10] VITALS (10 sets, daily range): BP systolic 106–153; BP diastolic 57–97; PULSE 52–100; RESP 16–19; TEMP 36.4–37.1; O2SAT 97–100
[2022-01-10] MEDS: heparin 5,000 unit/mL INJ 1 mL 5000 UNIT SUBCUT ×3 (00:53→15:57)
[2022-01-10] MEDS: clopidogrel 75 mg Tablet PO (08:09)
[2022-01-10] MEDS: aspirin 81 mg EC Tablet PO (08:09)
[2022-01-10 09:17] LABS: Glucose Point of Care 119 mg/dL (70-110)
[2022-01-10 11:53] LABS: Glucose Point of Care 226 mg/dL (70-110)
[2022-01-10] MEDS: insulin lispro 100 unit/1 mL SUBCUT ×2 (12:17→17:52)
--- NOTE | 2022-01-10 13:44 | PM.PN ---
Subjective Subjective: No acute events. Remains stable. No new complaints. Working with physical therapy. Lab holiday given today. Repeat labs tomorrow in the a.m. Vitals/I&O/Wt Last Vital Signs Temp 97.8 F 01/10/22 12:00 Pulse 100 01/10/22 12:00 Resp 17 01/10/22 12:00 BP 128/81 01/10/22 12:00 Pulse Ox 97 01/10/22 12:00 01/09/22 01/10/22 01/10/22 22:59 06:59 14:59 Intake Total 1280 / 1400 120 / 120 Output Total 900 / 900 Balance 380 / 500 120 / 120 Weight last 48 hrs Weight 83.915 kg Physical Exam Narrative: General: No acute distress, AO x3 HEENT: PERRLA, pupils bilaterally equal and reactive Chest: Normal vesicular breath sounds, no added sounds, equal good air entry bilaterally CVS: S1-S2 regular, soft ejection systolic murmur at aortic area, no tachycardia, no gallops, no rubs Abdomen: Soft, nontender, no organomegaly, bowel sounds present Neuro: No focal deficits, AOx3, flaccid paralysis of left upper and lower limb, facial droop, pupils bilaterally equal and reactive Data : 01/09/22 03:20 01/09/22 03:20 A&P Assessment and plan (1) Right pontine stroke: Appreciate several MRI head and MRA head and neck done in the ER. Goal blood pressure less than 140/90 mmHg now. Appreciate A1c, lipid panel results. Follow-up with PT/OT/speech evaluation. Will need placement to SNF versus acute rehab for further rehabitation. Repeat CT scan to rule out bleed given bradycardia. Continue with aspirin, Plavix, statin. Status: Acute (2) Type 2 diabetes mellitus: A1c 9.6. At home only on metformin. Will need to discharge on most likely to OHA's along with Lantus. Continue with insulin sliding scale. Will dose Lantus accordingly. Status: Acute (3) Hypertension: Permissible hypertension. Hold off on antihypertensives. Goal blood pressure around 140/90 mmHg. Blood pressures at goal. Will uptitrate start on medications accordingly. Status: Acute Plan Analgesia: Tylenol as needed Glycemic control: Moderate insulin sliding scale Nutrition: Dysphagia level 3 carb consistent diet CODE STATUS: Full code PUD prophylaxis: Famotidine DVT prophylaxis: Heparin 5000 every 8 hourly Discharge planning: Discharge to SNF versus acute rehab for further rehabitation. Case management alerted. Admit to [facility] with telemetry Plan for today: Monitor blood sugars, blood pressures. Physical therapy. Awaiting placement. Attestations Medical Necessity Statement*: Requires further hospitalization for post stroke care we will wait safe discharge planning. Time Spent in Patient Care: 16 - 35 minutes Coding Level of Care Code Acute Video Editor for Tae Fwd Diagnoses Right pontine stroke I63.50 Type 2 diabetes mellitus E11.9 Hypertension I10
[2022-01-10 17:28] LABS: Glucose Point of Care 268 mg/dL (70-110)
[2022-01-10] MEDS: atorvastatin 40 mg Tablet 20 MG PO (20:37)
[2022-01-11] VITALS (10 sets, daily range): BP systolic 116–182; BP diastolic 76–100; PULSE 52–91; RESP 16–17; TEMP 36.2–36.9; O2SAT 97–100
[2022-01-11] MEDS: heparin 5,000 unit/mL INJ 1 mL 5000 UNIT SUBCUT ×3 (00:35→17:49)
[2022-01-11 04:04] LABS: Basophils # 0.1 10^3/uL (0.0-0.1); Basophils % 0.9 %; Eosinophils # 0.2 10^3/uL (0.0-0.8); Eosinophils % 2.1 %; Hematocrit 40.3 % (42.0-52.0); Hemoglobin 13.9 g/dL (11.7-16.6); Lymphocytes # 2.9 10^3/uL (0.8-4.8); Lymphocytes % 36.3 %; Mean Corpuscular HGB Conc 34.5 g/dL (30.0-36.0); Mean Corpuscular Hemoglobin 31.4 pg (28.0-34.0); Monocytes # 0.8 10^3/uL (0.2-0.9); Monocytes % 9.6 %; Neutrophils # 4.09 10^3/uL (1.8-7.7); Neutrophils % 50.6 %; Nucleated Red Blood Cells % 0 %; Platelet Count 248 10^3/cmm (130-400); Red Blood Count 4.43 10^6/uL (4.1-5.3); Red Cell Distribution Width 13.6 % (12.1-15.1); White Blood Count 8.1 10^3/uL (4.0-10.0)
[2022-01-11 04:27] LABS: Alanine Aminotransferase 38 U/L (0-41); Albumin Level 4.1 g/dL (3.5-5.2); Alkaline Phosphatase 63 IU/L (40-130); Blood Urea Nitrogen 18 mg/dL (8-23); Calcium 8.9 mg/dL (8.5-10.5); Carbon Dioxide 23 mmol/L (22-29); Chloride 103 mmol/L (98-107); Creatinine Clr Calc Pharmacy 98.4385; Globulin 2.2 g/dL (1.3-4.6); Glomerular Filtration Rate 97.3 mL/min (90-130); Glucose 169 mg/dL (65-115); Osmolality Calculated 292 mOsm/kg (285-295); Sodium 138 mmol/L (136-145); Total Bilirubin 0.7 mg/dL (0.15-1.2); Total Protein 6.3 g/dL (6.6-8.7)
[2022-01-11 04:28] LABS: Anion Gap 15.8 (5-19); Aspartate Amino Transferase 30 U/L (0-40); Potassium 3.8 mmol/L (3.5-5.1)
[2022-01-11 06:55] LABS: Glucose Point of Care 116 mg/dL (70-110)
[2022-01-11 06:55] LABS: Glucose Point of Care 205 mg/dL (70-110)
[2022-01-11] MEDS: insulin lispro 100 unit/1 mL SUBCUT ×4 (08:38→21:37)
[2022-01-11] MEDS: clopidogrel 75 mg Tablet PO (08:39)
[2022-01-11] MEDS: aspirin 81 mg EC Tablet PO (08:39)
[2022-01-11 11:30] LABS: Glucose Point of Care 191 mg/dL (70-110)
--- NOTE | 2022-01-11 13:29 | PM.PN ---
Subjective Subjective: Seen this morning. No acute events overnight. Asking about CT scan results. Vitals/I&O/Wt Last Vital Signs Temp 98.2 F 01/11/22 11:40 Pulse 81 01/11/22 11:40 Resp 16 01/11/22 11:40 BP 137/89 01/11/22 11:40 Pulse Ox 97 01/11/22 11:40 01/10/22 01/11/22 01/11/22 22:59 06:59 14:59 Intake Total 240 / 360 120 / 120 Output Total 0 / 0 300 / 300 400 / 400 Balance 240 / 360 -300 / 60 -280 / -280 Physical Exam Narrative: General: No acute distress, AO x3 HEENT: PERRLA, pupils bilaterally equal and reactive Chest: Normal vesicular breath sounds, no added sounds, equal good air entry bilaterally CVS: S1-S2 regular, soft ejection systolic murmur at aortic area, no tachycardia, no gallops, no rubs Abdomen: Soft, nontender, no organomegaly, bowel sounds present Neuro: No focal deficits, AOx3, flaccid paralysis of left upper and lower limb, facial droop, pupils bilaterally equal and reactive Data : 01/11/22 03:44 01/11/22 03:44 A&P Assessment and plan (1) Hypertension: Status: Acute (2) Type 2 diabetes mellitus: Status: Acute (3) Right pontine stroke: Status: Acute (4) Ischemic stroke: Status: Acute Plan #Right pontine stroke #Type 2 diabetes mellitus #Hypertension ? MRI head MRA head and neck done in ER. A1c lipid results reviewed ? PT OT speech evaluation ? Placement to rehab. Pending ? CT scan head repeated, negative for intracranial bleed. It just shows evolving infarct ? Continue aspirin Plavix statin ? A1c 9.6. Discharged on Lantus and insulin sliding scale along with metformin ? Blood pressure goal 140/90. ? Tylenol as needed ? Dysphagia level 3 carb consistent diet Heparin 5000 every 8 hours ? Full code Pending placement Attestations Medical Necessity Statement*: Pending placement Coding Level of Care Code Acute Investment Counselor for Chg Fwd Diagnoses Hypertension I10 Type 2 diabetes mellitus E11.9 Right pontine stroke I63.50 Ischemic stroke I63.9
[2022-01-11 17:18] LABS: Glucose Point of Care 178 mg/dL (70-110)
[2022-01-11] MEDS: atorvastatin 40 mg Tablet 20 MG PO (20:56)
[2022-01-12] VITALS: BP 144/84; PULSE 66; RESP 18; TEMP 36.2; O2SAT 100
[2022-01-12] MEDS: heparin 5,000 unit/mL INJ 1 mL 5000 UNIT SUBCUT ×2 (00:09→09:07)
[2022-01-12 04:00] VITALS: BP 124/77; PULSE 53; RESP 16; TEMP 36.2; O2SAT 99
[2022-01-12 08:00] VITALS: BP 161/88; PULSE 74; RESP 16; TEMP 36.3; O2SAT 99
[2022-01-12 08:17] LABS: Glucose Point of Care 195 mg/dL (70-110)
[2022-01-12 08:18] LABS: Glucose Point of Care 269 mg/dL (70-110)
[2022-01-12 08:18] LABS: Glucose Point of Care 236 mg/dL (70-110)
[2022-01-12 08:24] VITALS: BP 137/74; PULSE 60; RESP 19; TEMP 36.5; O2SAT 95
--- NOTE | 2022-01-12 08:37 | USCV_ITS ---
Eliazar Gomez Age: 62 Gender: M : 1960 Exam Date: 01/12/2022 09:08 Ordering Phys: Reyna Moreno MD Technologist: ANA Exam Location: [facility] [place] Indication: STROKE Risk Factors: Previous Vascular Surgery: Right Brachial BP: / Left Brachial BP: / Right Left Velocity (cm/s) Spectral Plaque Velocity (cm/s) Spectral Plaque Syst/Diast Broadening Syst/Diast Broadening 113.60/18.70 Prox CCA 95.30 / 22.00 146.60/27.60 Mid CCA 115.80/ 30.90 110.30/27.60 Distal CCA 135.60/ 30.90 103.80/18.00 Prox ICA 164.40/ 32.90 81.60/ 20.90 Mid ICA 122.20/ 35.60 77.10/ 21.90 Distal ICA 58.30 / 28.50 124.60 ECA 125.60 0.71 ICA/CCA 1.21 Antegrade Vertebral Antegrade 52.60/ 11.40 cm/s 37.30/ 8.50 cm/s Tri Subclavian Tri 84.10 278.0 0 CONCLUSIONS Right ICA stenosis <50%. Mild atheromatous plaque right carotid bulb/ICA. Left ICA stenosis 50-69%. Moderate atheromatous plaque left carotid bulb/ICA. Normal antegrade Doppler flow noted in the right vertebral artery. Normal antegrade Doppler flow noted in the left vertebral artery. Maximino Milian MD (Electronically Signed) Final Date: 12 January 2022 11:03 S
--- NOTE | 2022-01-12 08:38 | PM.DCS ---
Discharge Providers Date of Admission: 01/08/22 13:16 Date of Discharge: January 12, 2022 Attending Provider at Admission: Rashaun Trejo MD Attending Provider at Discharge: Reyna Moreno MD Diagnoses at Discharge Discharge Diagnosis (1) Hypertension: Status: Acute (2) Type 2 diabetes mellitus: Status: Acute (3) Right pontine stroke: Status: Acute (4) Ischemic stroke: Status: Acute Reason for Visit Reason for Visit: stoke like symptoms Brief History: Eliazar Gomez is a 61 year old male with past medical history of hypertension, type 2 diabetes mellitus on metformin, retired who presented to the ER today because of weakness on the left side of his body along with slurring of speech.? As per the patient and at bedside patient started having symptoms on Tuesday night(today is Tuesday afternoon).? After the patient he started having heaviness in the left side of his body high-grade Night which was resolved with any slept overnight.? On afternoon he started having slurring of speech and some difficulty in forming words which he thought was from tiredness so he went to sleep.? He went to urgent care yesterday and he was given aspirin and fluid for hydration.? Today morning when he woke up he was having extreme weakness on the left side along with slurring of speech so he presented to the ER. In the ER he was found to have NIH score of 5.? Case was discussed with neurologist at [facility] who recommended against tPA as patient was out of window and several MRIs which have been done.? Patient's presentation blood pressure was 170 systolic he was given labetalol 10 mg 1 time. Hospital Course Hospital Course 62-year-old with history of diabetes, hypertension presented with dense right pontine stroke. Complete flaccid paralysis of left side. Also found to have A1c of 9.6. MRI, MRA were completed in hospital. MRA did not have adequate contrast given therefore was a poor study. Pt sent to [facility] at discharge. Repeat head CT showed evolving stroke. Pt sent home on metformin 1000 bid with addition of sitagliptin 50 daily. Pt setup with event monitor at discharge. He is to follow with neurology within 2 weeks of discharge. Discussed all of the above with Dr. Ghosh.Lisinopril increased to 20 mg daily. He will need to follow with PCP for his diabetes. Physical Exam Narrative: General: No acute distress, AO x3 HEENT: PERRLA, pupils bilaterally equal and reactive Chest: Normal vesicular breath sounds, no added sounds, equal good air entry bilaterally CVS: S1-S2 regular, soft ejection systolic murmur at aortic area, no tachycardia, no gallops, no rubs Abdomen: Soft, nontender, no organomegaly, bowel sounds present Neuro: No focal deficits, AOx3, flaccid paralysis of left upper and lower limb, facial droop, pupils bilaterally equal and reactive Discharge Data Studies Completed and Pending Completed Studies During Hospitalization Category Date Time Status CT head wo con* [id number] Routine Cat Scan 01/09/22 11:[address] head wo con* [id number] Stat Cat Scan 01/08/22 10:21 Completed XR chest 1V portable [id number] Urgent Exams 01/08/22 10:20 Completed MR angio head wo con [id number] Stat MRI 01/08/22 11:19 Completed MR angio neck w con* [id number] Stat MRI 01/08/22 11:19 Completed MR head wo con* [id number] Stat MRI 01/08/22 11:18 Completed CV. echo w/w bubble cont [id number] Routine Ultrasound 01/08/22 16:01 Completed Pending at discharge Category Date Time Status CV carotid duplex BI* [id number] Urgent Ultrasound 01/12/22 08:37 Ordered Radiology Impressions Chest X-Ray 01/08/22 10:20 Impression: Negative chest. Head MRI 01/08/22 11:18 IMPRESSION: 1. Acute focal RIGHT pontine infarct without hemorrhage. 2. Otherwise. Mild atrophy and small vessel ischemic disease. 3. No acute thrombus is noted in the basilar or posterior cerebral artery. Head MRA 01/08/22 11:19 IMPRESSION: 1. Moderate stenosis and narrowing involving the distal RIGHT vertebral artery. No thrombus identified. Stenosis may be congenital or due to thrombus resulting in stenosis. No occlusion. 2. Patent basilar artery. 3. No aneurysms. Neck MRA 01/08/22 11:19 IMPRESSION: Nondiagnostic evaluation of the carotid arteries. Head CT 01/09/22 11:19 IMPRESSION: When compared with 01/08/2022, there is an evolving infarct in the right ave. No associated hemorrhage. Laboratory Results WBC 8.1 10^3/uL (4.0-10.0) 01/11/22 03:44 RBC 4.43 10^6/uL (4.1-5.3) 01/11/22 03:44 Hgb 13.9 g/dL (11.7-16.6) 01/11/22 03:44 Hct 40.3 % (42.0-52.0) L 01/11/22 03:44 MCV 91.0 fl (80-94) 01/11/22 03:44 MCH 31.4 pg (28.0-34.0) 01/11/22 03:44 MCHC 34.5 g/dL (30.0-36.0) 01/11/22 03:44 RDW 13.6 % (12.1-15.1) 01/11/22 03:44 Plt Count 248 10^3/cmm (130-400) 01/11/22 03:44 MPV 10.0 fL (7.4-10.4) 01/11/22 03:44 Neut % (Auto) 50.6 % 01/11/22 03:44 Lymph % (Auto) 36.3 % 01/11/22 03:44 [place] % (Auto) 9.6 % 01/11/22 03:44 Eos % (Auto) 2.1 % 01/11/22 03:44 Baso % (Auto) 0.9 % 01/11/22 03:44 Neut # (Auto) 4.09 10^3/uL (1.8-7.7) 01/11/22 03:44 Lymph # (Auto) 2.9 10^3/uL (0.8-4.8) 01/11/22 03:44 Marshall # (Auto) 0.8 10^3/uL (0.2-0.9) 01/11/22 03:44 Eos # (Auto) 0.2 10^3/uL (0.0-0.8) 01/11/22 03:44 Baso # (Auto) 0.1 10^3/uL (0.0-0.1) 01/11/22 03:44 Nucleated RBC % (auto) 0 % 01/11/22 03:44 Nucleated RBCs # 0.0 /100WBC 01/11/22 03:44 PT 14.50 SECONDS (12.1-14.9) 01/08/22 10:20 INR 1.09 (0.8-1.2) 01/08/22 10:20 APTT 26.0 SECONDS (23.9-36.7) 01/08/22 10:20 Sodium 138 mmol/L (136-145) 01/11/22 03:44 Potassium 3.8 mmol/L (3.5-5.1) 01/11/22 03:44 Chloride 103 mmol/L (98-107) 01/11/22 03:44 Carbon Dioxide 23 mmol/L (22-29) 01/11/22 03:44 Anion Gap 15.8 (5-19) 01/11/22 03:44 BUN 18 mg/dL (8-23) 01/11/22 03:44 Creatinine 0.8 mg/dL (0.7-1.2) 01/11/22 03:44 GFR Calculation 97.3 mL/min (90-130) 01/11/22 03:44 Glucose 169 mg/dL (65-115) H 01/11/22 03:44 POC Glucose 236 mg/dL (70-110) H 01/12/22 07:46 Estimat Average Glucose 229 01/09/22 03:20 Hemoglobin A1c 9.6 % (4.0-6.0) H 01/09/22 03:20 Calculated Osmolality 292 mOsm/kg (285-295) 01/11/22 03:44 Calcium 8.9 mg/dL (8.5-10.5) 01/11/22 03:44 Iron 176 ug/dL (59-158) H 01/08/22 10:20 TIBC 318 mcg/dl 01/08/22 10:20 % Saturation 55.3 % (20-50) H 01/08/22 10:20 Unsat Iron Binding 142 ug/dL (112-347) 01/08/22 10:20 Total Bilirubin 0.7 mg/dL (0.15-1.2) 01/11/22 03:44 AST 30 U/L (0-40) 01/11/22 03:44 ALT 38 U/L (0-41) 01/11/22 03:44 Alkaline Phosphatase 63 IU/L (40-130) 01/11/22 03:44 Troponin T Baseline 15 ng/L (0-15) 01/08/22 10:20 Troponin T 120 Minute 13.17 ng/L (0-15) 01/08/22 13:43 Delta Troponin T -1.83 ABS# (0-10) L 01/08/22 13:43 Troponin T Hi Sens 6Hr 12.60 ng/L (0-15) 01/08/22 16:43 Troponin T Hi Sens 6Hr Delta -0.57 ng/L (0-12) L 01/08/22 16:43 Total Protein 6.3 g/dL (6.6-8.7) L 01/11/22 03:44 Albumin 4.1 g/dL (3.5-5.2) 01/11/22 03:44 Globulin 2.2 g/dL (1.3-4.6) 01/11/22 03:44 Triglycerides 165 mg/dL (0-150) H 01/09/22 03:20 Triglycerides Cancelled 01/09/22 03:20 Cholesterol 186 mg/dL (0-200) 01/09/22 03:20 Cholesterol Cancelled 01/09/22 03:20 LDL Cholesterol, Calc 110 mg/dL (50-129) 01/09/22 03:20 LDL Cholesterol, Calc Cancelled 01/09/22 03:20 HDL Cholesterol 43 mg/dL (60-100) L 01/09/22 03:20 HDL Cholesterol Cancelled 01/09/22 03:20 LDL/HDL Ratio 2.56 RATIO (0.00-3.22) 01/09/22 03:20 LDL/HDL Ratio Cancelled 01/09/22 03:20 Cholesterol/HDL Ratio 4.33 mg/dL (1.0-5.00) 01/09/22 03:20 Cholesterol/HDL Ratio Cancelled 01/09/22 03:20 TSH 1.18 uIU/mL (0.27-4.20) 01/08/22 10:20 Urine Color Yellow (Yellow) 01/08/22 14:24 Urine Appearance Clear (CLEAR) 01/08/22 14:24 Urine pH 5 (5-7) 01/08/22 14:24 Ur Specific [place] 1.015 (1.005-1.030) 01/08/22 14:24 Urine Protein Neg (Negative) 01/08/22 14:24 Urine Glucose (UA) 4+ (Normal) H 01/08/22 14:24 Urine Ketones Negative (Negative) 01/08/22 14:24 Urine Blood Neg (Negative) 01/08/22 14:24 Urine Nitrate Negative (Negative) 01/08/22 14:24 Urine Bilirubin Neg (Negative) 01/08/22 14:24 Prot Sulfosalicylic Acd Negative (Negative) 01/08/22 14:24 Urine Urobilinogen Norm mg/dL (Negative) 01/08/22 14:24 Ur Leukocyte Esterase Negative (Negative) 01/08/22 14:24 Urine RBC None /hpf (0-2) 01/08/22 14:24 Urine WBC None /hpf (0-5) 01/08/22 14:24 Ur Squamous Epith Cells 0-4 /hpf (0-5) H 01/08/22 14:24 Amorphous Sediment Not Reportable 01/08/22 14:24 Urine Bacteria None /hpf (NONE) 01/08/22 14:24 Urine Opiates Screen Negative ng/mL (Negative) 01/08/22 14:24 Ur Barbiturates Screen Negative ng/mL (Negative) 01/08/22 14:24 Ur Phencyclidine Scrn Negative ng/mL (Negative) 01/08/22 14:24 Ur Amphetamines Screen Negative ng/mL (Negative) 01/08/22 14:24 U Benzodiazepines Scrn Negative ng/mL (Negative) 01/08/22 14:24 Urine Cocaine Screen Negative ng/mL (Negative) 01/08/22 14:24 U Marijuana (THC) Screen Negative ng/mL (Negative) 01/08/22 14:24 Ethyl Alcohol < 10 mg/dL (0-10) 01/08/22 10:20 Vitals Last Vital Signs Temp 97.7 F 01/12/22 08:24 Pulse 60 01/12/22 08:24 Resp 19 H 01/12/22 08:24 BP 137/74 01/12/22 08:24 Pulse Ox 95 01/12/22 08:24 Discharge Plan Discharge Patient Disposition: Xfer SNF Condition: Stable Prescriptions: New atorvastatin 40 mg Tablet 80 mg PO BEDTIME 30 Days Qty: 30 0RF clopidogrel 75 mg Tablet 75 mg PO DAILY 30 Days Qty: 30 0RF aspirin 81 mg Tablet,Delayed Release (Dr/Ec) 81 mg PO DAILY 30 Days Qty: 30 0RF metformin 1,000 mg tablet 500 mg PO BID 30 Days Qty: 30 0RF Januvia 50 mg tablet 50 mg PO DAILY 30 Days Qty: 30 0RF Continued multivitamin Tablet 1 tab PO DAILY 0RF fluticasone propionate 50 mcg/actuation spray,suspension 2 spray INTRANASAL DAILY 0RF Changed lisinopril 20 mg tablet 20 mg PO QAM Qty: 0 0RF Discontinued aspirin [Aspir-81] 81 mg Tablet,Delayed Release (Dr/Ec) 81 mg PO BEDTIME 0RF metformin 500 mg tablet extended release 24 hr 500 mg PO QPM 0RF Discharge Orders: Discharge Order (Routine); Ordered 01/12/22 Ordered By: Reyna Moreno Other Ambulatory Orders: MCT/Event Monitor 21 Days (Routine) Timeframe: 1 Day Facility: [facility] - Location: Radiology Ordered By: Reyna Moreno Referrals: Teri Ghosh MD [Physician] - 01/19/22 11:15 am Edgardo Pond DO [Staff Physician] - 4-7 days Caron Madrid MD [Physician] - 03/10/22 12:45 pm Discharge Diet: Cardiac and Diabetic Discharge Activity: Increase activity as tolerated Patient Instructions: Clopidogrel (By mouth), Sitagliptin (By mouth) Activity Restrictions/Additional Instructions: Keep a blood pressure diary and take to your primary care doctor. Follow up with primary care doctor within 4-7 days of discharge. Please follow up with Neurology within 2 weeks of discharge. [facility] WILL MAIL EVENT MONITOR TO PATIENT AT [facility], Discharge Attestations Time Spent in Discharge Care*: less than 30 min Quality Metrics Clinical Quality Measures [ No reported AMI, CVA or VTE this stay] Coding Level of Care Code Acute Chg FW DC note Diagnoses Hypertension I10 Type 2 diabetes mellitus E11.9 Right pontine stroke I63.50 Ischemic stroke I63.9
[2022-01-12] MEDS: insulin lispro 100 unit/1 mL SUBCUT (09:02)
[2022-01-12] MEDS: aspirin 81 mg EC Tablet PO (09:09)
[2022-01-12] MEDS: clopidogrel 75 mg Tablet PO (09:09)
--- NOTE | 2022-01-12 11:32 | PC.NURSE ---
report given to DAYNA Carreon at [facility]
[2022-01-12 11:51] VITALS: BP 137/74; PULSE 60; RESP 19; TEMP 36.5; O2SAT 95
== END 2022-01-12 11:43 | DRG 65 ==
LOC: ER 10:34 → MEDSURG 14:18
PROVIDERS: Admitting Provider Student in an Organized Health Care Education/Training Program; Emergency Provider Emergency Medicine; Visit Provider Internal Medicine
DX: I63.9 Cerebral infarction, unspecified (principal); G81.04 Flaccid hemiplegia affecting left nondominant side; R47.81 Slurred speech; I10 Essential (primary) hypertension; R29.705 NIHSS score 5; E11.9 Type 2 diabetes mellitus without complications; Z79.84 Long term (current) use of oral hypoglycemic drugs; Z87.891 Personal history of nicotine dependence; R13.10 Dysphagia, unspecified
CPT/HCPCS: 36415; 36416; 70450; 70544; 70548; 70551; 71045; 80053; 80061; 80306; 80307; 81001; 82962; 83036; 83540; 83550; 84443; 84484; 85025; 85610; 85730; 92507; 92523; 92610; 93005; 93880; 96372; 97110; 97112; 97116; 97161; 97166; 97530; 97535; 99285; A9579; C8929; J1644; J1815

== ENCOUNTER 2022-10-06 11:44 | Outpatient (CLI) | payer BC, SELFPAY ==
--- NOTE | 2022-10-06 12:07 | USCV_ITS ---
Eliazar Gomez Age: 62 Gender: M : 1960 Exam Date: 10/06/2022 12:20 Ordering Phys: Edgardo Pond DO Technologist: Exam [facility]: [facility] Indication: pad RIGHT LEFT Brachial 148.00 mmHg Brachial mmHg Pressure (mmHg) Waveform Pressure (mmHg) Waveform 184.00 DPA 172.00 1.20 Ankle/Brachial Index 1.10 1.10 Post-Exercise Ankle Brachial Index 1.10 FINDINGS Resting MARLEN 1.1 on the right and 1.1 on the left Post exercise MARLEN of 1.14 on the right and 1.13 on the left CONCLUSIONS Normal resting and postexercise ABIs bilaterally, suggesting no significant arterial obstruction. Dr Nitesh Arevalo MD [facility] (Electronically Signed) Final Date: 06 October 2022 21:53 S
== END 2022-10-06 11:45 | disposition home or self-care (01) ==
PROVIDERS: PCP Electrodiagnostic Medicine; Visit Provider Electrodiagnostic Medicine
DX: I73.9 Peripheral vascular disease, unspecified (principal)
CPT/HCPCS: 93922

== ENCOUNTER 2023-02-20 10:37 | Observation (INO) | payer MEDICARE, SELFPAY ==
[2023-02-20] VITALS (15 sets, daily range): BP systolic 86–137; BP diastolic 45–86; PULSE 55–96; RESP 15–18; TEMP 36.6–36.7; O2SAT 94–100
--- NOTE | 2023-02-20 10:52 | CTR_ITS ---
PROCEDURE INFORMATION: Exam: CT Head Without Contrast Exam date and time: 02/20/2023 11:16 AM Age: 63 years old Clinical indication: Altered mental status/memory loss; Confusion or disorientation; Additional info: HX of stroke, hit head with fall, on blood thinners TECHNIQUE: Imaging protocol: Computed tomography of the head without contrast. Radiation optimization: All CT scans at this facility use at least one of these dose optimization techniques: automated exposure control; mA and/or kV adjustment per patient size (includes targeted exams where dose is matched to clinical indication); or iterative reconstruction. REPORTING DATA: Count of CT and Cardiac NM exams in prior 12 months: This patient has received 0 known CTs and 0 known cardiac nuclear medicine studies in the 12 months prior to the current study. COMPARISON: CT head wo con* [id number] 01/09/2022 2:36 PM RADIATION DOSE METRICS: Total DLP (mGy-cm): 1083.93 FINDINGS: Brain: Normal. No hemorrhage. Unremarkable white matter. No mass effect. Cerebral ventricles: No ventriculomegaly. Paranasal sinuses: Visualized sinuses are unremarkable. No fluid levels. Mastoid air cells: Visualized mastoid air cells are well aerated. Bones/joints: Unremarkable. No acute fracture. Soft tissues: Unremarkable. CT/CT head wo con* [id number] IMPRESSION: No acute intracranial abnormality.
--- NOTE | 2023-02-20 10:52 | XRR_ITS ---
PROCEDURE INFORMATION: Exam: XR Left Shoulder Exam date and time: 02/20/2023 11:10 AM Age: 63 years old Clinical indication: Pain; Shoulder; Left; Additional info: Pain after fall TECHNIQUE: Imaging protocol: Radiologic exam of the left shoulder. Views: 2 or more views. COMPARISON: CR XR chest 1V portable [id number] 01/08/2022 10:42 AM FINDINGS: Bones/joints: There is fracture of the left greater humeral tuberosity. The bones are osteopenic. Soft tissues: Normal. XR/XR shoulder LT min 2V* [id number] IMPRESSION: Fracture of the left greater humeral tuberosity.
--- NOTE | 2023-02-20 10:53 | ED_ITS ---
Documented by User: Yessenia Cooper PA-C 02/20/23 15:31 HPI - Extremity Problem General: Chief complaint: Extremity Injury, Upper Stated complaint: fall, neck and left shoulder pain Time Seen by Provider: 02/20/23 10:48 Source: patient Mode of arrival: ambulatory Limitations: no limitations History of Present Illness: Next he 3-year-old male presents to the ER with left arm pain after a fall this morning. Patient reports he was working with his calves when the calves hit a gate that came back and hit the patient. Patient reports when the gate hit him his said he flew about 10 feet landing on the left shoulder. 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 Patient reports decreased range of motion of that side but usually no pain. He does report now pain with any movement of the left shoulder. He has normal movement of the hand and wrist. Denies any numbness or tingling. Denies any bruising or deformity. His thought there might be some swelling in the shoulder after the injury. She reports he did not lose consciousness. Patient denies any headache but is on a blood thinner. Review of Systems General: Reports: 10 or more systems reviewed and unremarkable except in HPI and below PFSH ED PFSH: Medical History Hypertension Type 2 diabetes mellitus Surgical History No significant past surgical history Family History Other CAD (coronary artery disease) Hypertension Stroke Social History Smoking and tobacco status: former smoker Alcohol intake: current Alcohol intake frequency: few times a week Substance/Drug Use: never Caregiver/support person: Yes Lives independently: Yes Household members: spouse Housing: House Marital status: Current occupational status: retired Physical Exam Const: COMMON NORMALS: average body habitus, patient oriented x3, healthy appearing, alert and well nourished HENMT: COMMON NORMALS: normocephalic, atraumatic, external ears normal, Normal external nose present and moist oral mucous membranes HEAD & SCALP: normocephalic and atraumatic NOSE: Normal external nose present EXTERNAL EAR: Yes external ears normal Eye: COMMON NORMALS: Equal, round and reactive pupils present, EOMs intact bilaterally and conjunctivae normal CONJUNCTIVA: Yes conjunctivae normal PUPIL: Yes Equal, round and reactive pupils present Neck/C-Spine: COMMON NORMALS: full ROM and no lymphadenopathy CERVICAL SPINE: Yes cervical ROM normal and No Cervical spine tenderness Resp: COMMON NORMALS: normal respiratory effort, No retractions and clear to auscultation bilaterally AUSCULTATION: clear to auscultation bilaterally Cardio: COMMON NORMALS: regular rate, regular rhythm and No murmurs present (Cardio) RATE: regular rate RHYTHM: regular rhythm GI: COMMON NORMALS: Normal to inspection, nondistended, normoactive bowel sounds present and non-tender Extremity: NARRATIVE EXTREMITY EXAM: Patient has noted unevenness to the left shoulder. There is tenderness along the proximal humerus. No obvious deformity noted to the skin. No bruising. Patient has pain with any range of motion of the left shoulder including any abduction. He is able to move the wrist and fingers without any pain. Pulses are equal bilaterally. No numbness no tingling. Neuro: COMMON NORMALS: patient oriented x3 SENSORIUM/ORIENTATION: Yes alert Psych: COMMON NORMALS: mental status grossly normal, Normal thought process present and cooperative THOUGHT PROCESS: Normal thought process present Skin: COMMON NORMALS: no rashes or lesions noted and no wounds GENERAL SKIN EXAM: no rashes or lesions noted Course ED course: Patient presents to the ER after a fall this morning. Patient was hit by a gate that the cow's hit. Patient flew about 10 feet before landing on the left shoulder. He reports pain with any range of motion of the left shoulder. He has not take anything for pain at this time and does not want anything right now. He reports side effects with any type of pain medication. Patient has normal pulses bilaterally. No numbness or tingling. Patient did hit his head and does take a blood thinner. Given age and history of stroke of the brainstem we will go ahead and CT patient's head. Reevaluation(s): Reevaluation #1: Upon discharge, the nurse was trying to get patient into a wheelchair when he suddenly become dizzy and unable to follow commands. This was about 30 seconds and patient became very pale. They report his eyes were bouncing. Patient was unable to respond to them. They did get him back into the bed and he became very diaphoretic. Denies any pain. Denies a history of seizures or syncopal episodes. Reevaluation #2: EKG is normal other than some bradycardia. Patient's white count though is 2 1,000. We will add a UA and also chest x-ray. Patient questioned about whether he has felt ill recently. He denies any urinary symptoms abdominal symptoms fevers, chills, cough, or recent illness. Reevaluation #3: Pt feeling somewhat better. Still having trouble getting us a urine. Spoke with Dr. Prieto who will see pt in ER and requested several more labs. Also spoke with Dr. Weaver. Recommend a sling and f/u outpatient for humeral fracture. Additional Reevaluation(s): Dr. Prieto saw patient and agrees for admission. Troponin is bumped slightly at 20. Patient also drop back to 89% on room air so 2 L of oxygen was placed back on him. Currently comfortable. Vital Signs: Vital signs: Vital Signs Temperature 98.6 F 02/21/23 03:23 Pulse Rate 87 02/21/23 03:23 Respiratory Rate 13 02/21/23 03:23 Blood Pressure 113/69 02/21/23 03:23 Pulse Oximetry 93 02/21/23 03:23 Oxygen Delivery Me thod Room Air 02/21/23 03:23 Oxygen Flow Rate 2 02/20/23 13:15 MDM - Extremity (Nontraumatic) Medical Decision Making CT of the head was normal. X-ray does indicate humeral head fracture. Patient had a complication at the time of discharge and had a seizure versus syncopal episode. Additional labs were ordered and found to be abnormal including 21,000 white count and several other abnormals. Patient also required 2 L of oxygen to remain greater than 92%. Spoke with Dr. Weaver who agrees with outpatient treatment for the humeral fracture. Spoke with Dr. Gonzalez who came to the ER and saw patient. He agrees to admission in addition to ordering several more labs to evaluate patient's symptoms. Lab Data 02/21/23 02:53 02/21/23 02:[address] 02/20/23 10:52 IMPRESSION: No acute intracranial abnormality. Shoulder X-Ray 02/20/23 10:52 IMPRESSION: Fracture of the left greater humeral tuberosity. Chest X-Ray 02/20/23 13:01 IMPRESSION: Negative portable chest. Laboratory Results WBC 21.6 10^3/uL (4.0-10.0) H 02/20/23 12:36 RBC 4.21 10^6/uL (4.1-5.3) 02/20/23 12:36 Hgb 13.1 g/dL (11.7-16.6) 02/20/23 12:36 Hct 39.1 % (42.0-52.0) L 02/20/23 12:36 MCV 92.9 fl (80-94) 02/20/23 12:36 MCH 31.1 pg (28.0-34.0) 02/20/23 12:36 MCHC 33.5 g/dL (30.0-36.0) 02/20/23 12:36 RDW 13.4 % (12.1-15.1) 02/20/23 12:36 Plt Count 290 10^3/cmm (130-400) 02/20/23 12:36 MPV 10.1 fL (7.4-10.4) 02/20/23 12:36 Neut % (Auto) 88.1 % 02/20/23 12:36 Lymph % (Auto) 5.0 % 02/20/23 12:36 [place] % (Auto) 6.0 % 02/20/23 12:36 Eos % (Auto) 0.1 % 02/20/23 12:36 Baso % (Auto) 0.2 % 02/20/23 12:36 Neut # (Auto) 19.03 10^3/uL (1.8-7.7) H 02/20/23 12:36 Lymph # (Auto) 1.1 10^3/uL (0.8-4.8) 02/20/23 12:36 [place] # (Auto) 1.3 10^3/uL (0.2-0.9) H 02/20/23 12:36 Eos # (Auto) 0.0 10^3/uL (0.0-0.8) 02/20/23 12:36 Baso # (Auto) 0.0 10^3/uL (0.0-0.1) 02/20/23 12:36 Nucleated RBC % (auto) 0 % 02/20/23 12:36 Nucleated RBCs # 0.0 /100WBC 02/20/23 12:36 Sodium 140 mmol/L (136-145) 02/20/23 12:36 Potassium 3.8 mmol/L (3.5-5.1) 02/20/23 12:36 Chloride 109 mmol/L (98-107) H 02/20/23 12:36 Carbon Dioxide 19 mmol/L (22-29) L 02/20/23 12:36 Anion Gap 15.8 (5-19) 02/20/23 12:36 BUN 17 mg/dL (8-23) 02/20/23 12:36 Creatinine 1.1 mg/dL (0.7-1.2) 02/20/23 12:36 GFR Calculation 67.2 mL/min (90-130) L 02/20/23 12:36 Glucose 247 mg/dL (65-115) H 02/20/23 12:36 Estimat Average Glucose 166 02/20/23 12:36 Hemoglobin A1c 7.4 % (4.0-6.0) H 02/20/23 12:36 Calculated Osmolality 300 mOsm/kg (285-295) H 02/20/23 12:36 Lactic Acid 2.8 mmol/L (0.5-2.2) H 02/20/23 12:36 Calcium 7.7 mg/dL (8.5-10.5) L 02/20/23 12:36 Total Bilirubin 0.5 mg/dL (0.15-1.2) 02/20/23 12:36 AST 16 U/L (0-40) 02/20/23 12:36 ALT 46 U/L (0-41) H 02/20/23 12:36 Alkaline Phosphatase 62 U/L (40-130) 02/20/23 12:36 Creatine Kinase 100 U/L (39-308) 02/20/23 12:36 Troponin T Baseline 20 ng/L (0-15) H 02/20/23 12:36 C-Reactive Protein 3.0 mg/L (0.0-4.9) 02/20/23 12:36 Total Protein 5.2 g/dL (6.6-8.7) L 02/20/23 12:36 Albumin 3.6 g/dL (3.5-5.2) 02/20/23 12:36 Globulin 1.6 g/dL (1.3-4.6) 02/20/23 12:36 Triglycerides 86 mg/dL (0-150) 02/20/23 12:36 Cholesterol 93 mg/dL (0-200) 02/20/23 12:36 LDL Cholesterol, Calc 41 mg/dL (50-129) L 02/20/23 12:36 HDL Cholesterol 35 mg/dL (60-100) L 02/20/23 12:36 LDL/HDL Ratio 1.17 RATIO (0.00-3.22) 02/20/23 12:36 Cholesterol/HDL Ratio 2.66 mg/dL (1.0-5.00) 02/20/23 12:36 25-OH Vitamin D Total 27 ng/mL (30-100) L 02/20/23 12:36 Procalcitonin 0.08 ng/mL (0-0.5) 02/20/23 12:36 TSH 2.11 uIU/mL (0.27-4.20) 02/20/23 12:36 Prolactin 19.11 ng/mL (4.0-15.2) H 02/20/23 12:36 PTH Intact 34.9 pg/mL (15-65) 02/20/23 12:36 Calcium (PTH Intact) 9.9 mg/dL (8.5-10.5) 02/20/23 12:36 Critical Care Time Critical Care Time: Critical Care Time: No Discharge Plan Discharge Patient Disposition: Admitted As Inpatient Admit Provider: Brooks Prieto Clinical Impression: Closed left humeral fracture, Concussion, Hypoxia, Leukocytosis Condition: Stable Discharge Diet: Usual diet Discharge Activity: Limit activity as instructed Coding Level of Care Code ED Batch Plant Supervisor for Chg Fwd Documented by User: Julien Ching DO 02/21/23 06:41 HPI - Extremity Problem General: Chief complaint: Extremity Injury, Upper Stated complaint: fall, neck and left shoulder pain Time Seen by Provider: 02/20/23 10:48 [facility]: Medical History Hypertension Type 2 diabetes mellitus Surgical History No significant past surgical history Family History Other CAD (coronary artery disease) Hypertension Stroke Social History Smoking and tobacco status: former smoker Alcohol intake: current Alcohol intake frequency: few times a week Substance/Drug Use: never Caregiver/support person: Yes Lives independently: Yes Household members: spouse Housing: House Marital status: Current occupational status: retired Course Vital Signs: Vital signs: Vital Signs Temperature 98.6 F 02/21/23 03:23 Pulse Rate 87 02/21/23 03:23 Respiratory Rate 13 02/21/23 03:23 Blood Pressure 113/69 02/21/23 03:23 Pulse Oximetry 93 02/21/23 03:23 Oxygen Delivery Me thod Room Air 02/21/23 03:23 Oxygen Flow Rate 2 02/20/23 13:15 MDM - Extremity (Nontraumatic) Medical Decision Making CT of the head was normal. X-ray does indicate humeral head fracture. Patient had a complication at the time of discharge and had a seizure versus syncopal episode. Additional labs were ordered and found to be abnormal including 21,000 white count and several other abnormals. Patient also required 2 L of oxygen to remain greater than 92%. Spoke with Dr. Weaver who agrees with outpatient treatment for the humeral fracture. Spoke with Dr. Gonzalez who came to the ER and saw patient. He agrees to admission in addition to ordering several more labs to evaluate patient's symptoms. Chart reviewed and patient discussed with midlevel. Agree with assessment and plan. Lab Data 02/21/23 02:53 02/21/23 02:[address] 02/20/23 10:52 IMPRESSION: No acute intracranial abnormality. Shoulder X-Ray 02/20/23 10:52 IMPRESSION: Fracture of the left greater humeral tuberosity. Chest X-Ray 02/20/23 13:01 IMPRESSION: Negative portable chest. Laboratory Results WBC 21.6 10^3/uL (4.0-10.0) H 02/20/23 12:36 RBC 4.21 10^6/uL (4.1-5.3) 02/20/23 12:36 Hgb 13.1 g/dL (11.7-16.6) 02/20/23 12:36 Hct 39.1 % (42.0-52.0) L 02/20/23 12:36 MCV 92.9 fl (80-94) 02/20/23 12:36 MCH 31.1 pg (28.0-34.0) 02/20/23 12:36 MCHC 33.5 g/dL (30.0-36.0) 02/20/23 12:36 RDW 13.4 % (12.1-15.1) 02/20/23 12:36 Plt Count 290 10^3/cmm (130-400) 02/20/23 12:36 MPV 10.1 fL (7.4-10.4) 02/20/23 12:36 Neut % (Auto) 88.1 % 02/20/23 12:36 Lymph % (Auto) 5.0 % 02/20/23 12:36 [place] % (Auto) 6.0 % 02/20/23 12:36 Eos % (Auto) 0.1 % 02/20/23 12:36 Baso % (Auto) 0.2 % 02/20/23 12:36 Neut # (Auto) 19.03 10^3/uL (1.8-7.7) H 02/20/23 12:36 Lymph # (Auto) 1.1 10^3/uL (0.8-4.8) 02/20/23 12:36 [place] # (Auto) 1.3 10^3/uL (0.2-0.9) H 02/20/23 12:36 Eos # (Auto) 0.0 10^3/uL (0.0-0.8) 02/20/23 12:36 Baso # (Auto) 0.0 10^3/uL (0.0-0.1) 02/20/23 12:36 Nucleated RBC % (auto) 0 % 02/20/23 12:36 Nucleated RBCs # 0.0 /100WBC 02/20/23 12:36 Sodium 140 mmol/L (136-145) 02/20/23 12:36 Potassium 3.8 mmol/L (3.5-5.1) 02/20/23 12:36 Chloride 109 mmol/L (98-107) H 02/20/23 12:36 Carbon Dioxide 19 mmol/L (22-29) L 02/20/23 12:36 Anion Gap 15.8 (5-19) 02/20/23 12:36 BUN 17 mg/dL (8-23) 02/20/23 12:36 Creatinine 1.1 mg/dL (0.7-1.2) 02/20/23 12:36 GFR Calculation 67.2 mL/min (90-130) L 02/20/23 12:36 Glucose 247 mg/dL (65-115) H 02/20/23 12:36 Estimat Average Glucose 166 02/20/23 12:36 Hemoglobin A1c 7.4 % (4.0-6.0) H 02/20/23 12:36 Calculated Osmolality 300 mOsm/kg (285-295) H 02/20/23 12:36 Lactic Acid 2.8 mmol/L (0.5-2.2) H 02/20/23 12:36 Calcium 7.7 mg/dL (8.5-10.5) L 02/20/23 12:36 Total Bilirubin 0.5 mg/dL (0.15-1.2) 02/20/23 12:36 AST 16 U/L (0-40) 02/20/23 12:36 ALT 46 U/L (0-41) H 02/20/23 12:36 Alkaline Phosphatase 62 U/L (40-130) 02/20/23 12:36 Creatine Kinase 100 U/L (39-308) 02/20/23 12:36 Troponin T Baseline 20 ng/L (0-15) H 02/20/23 12:36 C-Reactive Protein 3.0 mg/L (0.0-4.9) 02/20/23 12:36 Total Protein 5.2 g/dL (6.6-8.7) L 02/20/23 12:36 Albumin 3.6 g/dL (3.5-5.2) 02/20/23 12:36 Globulin 1.6 g/dL (1.3-4.6) 02/20/23 12:36 Triglycerides 86 mg/dL (0-150) 02/20/23 12:36 Cholesterol 93 mg/dL (0-200) 02/20/23 12:36 LDL Cholesterol, Calc 41 mg/dL (50-129) L 02/20/23 12:36 HDL Cholesterol 35 mg/dL (60-100) L 02/20/23 12:36 LDL/HDL Ratio 1.17 RATIO (0.00-3.22) 02/20/23 12:36 Cholesterol/HDL Ratio 2.66 mg/dL (1.0-5.00) 02/20/23 12:36 25-OH Vitamin D Total 27 ng/mL (30-100) L 02/20/23 12:36 Procalcitonin 0.08 ng/mL (0-0.5) 02/20/23 12:36 TSH 2.11 uIU/mL (0.27-4.20) 02/20/23 12:36 Prolactin 19.11 ng/mL (4.0-15.2) H 02/20/23 12:36 PTH Intact 34.9 pg/mL (15-65) 02/20/23 12:36 Calcium (PTH Intact) 9.9 mg/dL (8.5-10.5) 02/20/23 12:36 Discharge Plan Discharge Patient Disposition: Admitted As Inpatient Admit Provider: Brooks Prieto Clinical Impression: Closed left humeral fracture, Concussion, Hypoxia, Leukocytosis Condition: Stable Discharge Diet: Usual diet Discharge Activity: Limit activity as instructed Coding Level of Care Code ED Batch Plant Supervisor for Tae Friend
[2023-02-20] MEDS: HYDROcodone-acetaminophen 5-325 mg Tablet 1 TAB PO (11:35)
--- NOTE | 2023-02-20 12:16 | PC.NURSE ---
pt was assisted to wheelchair for DC when he reported feeling dizzy and then suddenly had what appeared to staff to be a seizure. Pt body became stiff with jerking motions for approx 1 minute. pt was immediately pale and diaphoretic when he regained consciousness.Pt returned to bed and placed on monitor. Physican notified of patients condition.
[2023-02-20] MEDS: sodium chloride 0.9% 1,000 ML 999 ML IV (12:39)
[2023-02-20 12:43] LABS: Basophils % 0.2 %; Eosinophils % 0.1 %; Hematocrit 39.1 % (42.0-52.0); Hemoglobin 13.1 g/dL (11.7-16.6); Lymphocytes # 1.1 10^3/uL (0.8-4.8); Mean Corpuscular HGB Conc 33.5 g/dL (30.0-36.0); Mean Corpuscular Hemoglobin 31.1 pg (28.0-34.0); Mean Corpuscular Volume 92.9 fl (80-94); Mean Platelet Volume 10.1 fL (7.4-10.4); Monocytes # 1.3 10^3/uL (0.2-0.9); Neutrophils # 19.03 10^3/uL (1.8-7.7); Neutrophils % 88.1 %; Nucleated Red Blood Cells % 0 %; Platelet Count 290 10^3/cmm (130-400); Red Blood Count 4.21 10^6/uL (4.1-5.3); Red Cell Distribution Width 13.4 % (12.1-15.1); White Blood Count 21.6 10^3/uL (4.0-10.0)
--- NOTE | 2023-02-20 12:44 | ECG_ITS ---
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 Measurements Intervals [place] Rate: 52 P: 35 VT: 161 QRS: -7 QRSD: 80 T: 14 QT: 451 QTc: 422 Interpretive Statements SINUS BRADYCARDIA SEPTAL MYOCARDIAL INFARCTION , PROBABLY OLD [40+ ms Q WAVE IN V1/V2] INFERIOR MYOCARDIAL INFARCTION , PROBABLY OLD [40+ ms Q WAVE AND/OR ST/T ABNORMALITY IN II/aVF] Compared to ECG 01/08/2022 16:34:23 Sinus rhythm no longer present Myocardial infarct finding still present Electronically Signed On 02-21-2023 8:31:37 CDT by Ameya Woods M.D. [id number]
--- NOTE | 2023-02-20 13:01 | XRR_ITS ---
PROCEDURE INFORMATION: Exam: XR Chest Exam date and time: 02/20/2023 1:21 PM Age: 63 years old Clinical indication: Abnormal findings; Abnormal diagnostic tests; Abnormal ekg; Additional info: Elevated wbc TECHNIQUE: Imaging protocol: Radiologic exam of the chest. Views: 1 view. COMPARISON: CR XR chest 1V portable [id number] 01/08/2022 10:42 AM FINDINGS: Lungs: Unremarkable for portable technique. No consolidation. Pleural spaces: Unremarkable. No pleural effusion. No pneumothorax. Heart/Mediastinum: Unremarkable. No cardiomegaly. Bones/joints: Unremarkable for age. XR/XR chest 1V portable [id number] IMPRESSION: Negative portable chest.
[2023-02-20 13:03] LABS: Alanine Aminotransferase 46 U/L (0-41); Albumin Level 3.6 g/dL (3.5-5.2); Alkaline Phosphatase 62 U/L (40-130); Anion Gap 15.8 (5-19); Aspartate Amino Transferase 16 U/L (0-40); Blood Urea Nitrogen 17 mg/dL (8-23); Calcium 7.7 mg/dL (8.5-10.5); Carbon Dioxide 19 mmol/L (22-29); Chloride 109 mmol/L (98-107); Globulin 1.6 g/dL (1.3-4.6); Glomerular Filtration Rate 67.2 mL/min (90-130); Glucose 247 mg/dL (65-115); Osmolality Calculated 300 mOsm/kg (285-295); Potassium 3.8 mmol/L (3.5-5.1); Sodium 140 mmol/L (136-145); Total Bilirubin 0.5 mg/dL (0.15-1.2); Total Protein 5.2 g/dL (6.6-8.7)
[2023-02-20 13:20] LABS: Prolactin 19.11 ng/mL (4.0-15.2)
[2023-02-20 15:16] LABS: Creatine Phosphokinase 100 U/L (39-308)
[2023-02-20 15:17] LABS: Troponin(5th) Baseline 20 ng/L (0-15)
[2023-02-20 15:22] LABS: Lactic Sepsis W/Reflex 2.8 mmol/L (0.5-2.2)
[2023-02-20 15:24] LABS: Procalcitonin 0.08 ng/mL (0-0.5)
[2023-02-20 15:48] LABS: Reflex Lactate Order REFLEX LACTIC ORDERD
--- NOTE | 2023-02-20 16:08 | ECG_ITS ---
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 Measurements Intervals [place] Rate: 78 P: 42 [place]: 180 QRS: -16 QRSD: 78 T: 4 QT: 383 QTc: 437 Interpretive Statements SINUS RHYTHM SEPTAL MYOCARDIAL INFARCTION , PROBABLY OLD [40+ ms Q WAVE IN V1/V2] INFERIOR MYOCARDIAL INFARCTION , PROBABLY OLD [40+ ms Q WAVE AND/OR ST/T ABNORMALITY IN II/aVF] Compared to ECG 02/20/2023 12:44:08 Sinus bradycardia no longer present Myocardial infarct finding still present Electronically Signed On 02-21-2023 8:29:32 CDT by Ameya Woods M.D. [id number]
--- NOTE | 2023-02-20 16:09 | PM.HP ---
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, and he tells me that one of his calves kicked the gate, and this metal gate swung and hit him on the left side, no breaks in the skin, no significant head trauma, but he fell onto his left side onto his left shoulder, he was brought to the emergency room and he had a left humeral fracture, orthopedic service was called who recommended medical management with sling, conservative interventions follow-up as outpatient however the plan was to discharge him home, but when he got into his wheelchair, he had an episode of passing out his tells me that his eyes rolled back he was nonresponsive, he was hypotensive blood pressures 90s over 40s, he was brought back into bed, given a bolus of fluids, currently sitting at the side of the bed with blood pressures of 120s over 60s, alert oriented x3, following all commands, denies any lightheadedness, denies any dizziness, denies remembering the episode, has been hydrating well reports he hydrated well this morning, denies any chest pain, no palpitations, no shortness of breath, no headache, blurry vision, he has had a large stroke with left-sided hemiplegia but he is significantly improved, has mild left hand weakness but overall no significant residual deficits, denies any recurrent strokelike symptoms, no abdominal pain he does have an abdominal inguinal hernia does not really bother him, no weakness, no dysuria, hematuria no shortness of breath, no cough no headache, no blurry vision, no neck pain, neck stiffness, hospitalist team was called given his orthostatic being positive his episode of syncope there was concerns for possible seizure as the prolactin levels were elevated at a detailed discussion with his who was there during the episode and she says that all he did was he went limp and his eyes rolled back no diffuse shaking, no urine incontinence no bowel incontinence he also has a leukocytosis of 20,000, troponins 20, Review of Systems Const: Denies: fever(s), chills, body aches, fatigue or malaise Eyes: Denies: change in vision Card: Denies: chest pain Resp: Denies: dyspnea GI: Denies: abdominal pain : Denies: flank pain or difficulty urinating Musc: Denies: neck pain or back pain Skin/Breast: Denies: rash Neuro: Denies: headache(s), numbness in extremities, sensory changes, lack of coordination, difficulty walking, dizziness, confusion, behavioral changes, Slurred speech present, difficulty communicating thoughts or seizure-like activity Medications/Allergies Home Medications Medication Instructions Recorded Confirmed Last Taken Type fluticasone propionate 50 2 spray intranasal DAILY PRN 01/08/22 02/20/23 Unknown History mcg/actuation nasal Allergic Symptoms spray,suspension multivitamin 1 tab PO DAILY 01/08/22 02/20/23 02/19/23 History atorvastatin 80 mg tablet 80 mg PO DAILY 02/20/23 02/20/23 02/19/23 History clopidogrel 75 mg tablet 75 mg PO DAILY 02/20/23 02/20/23 02/19/23 History glipizide 10 mg tablet, extended 10 mg PO DAILY 02/20/23 02/20/23 02/19/23 History release 24 hr hydrocodone 5 mg-acetaminophen 325 1 tab PO Q6H PRN pain #20 tabs 02/20/23 Unknown Rx mg tablet lisinopril 40 mg tablet 40 mg PO DAILY 02/20/23 02/20/23 02/19/23 History magnesium 250 mg tablet 250 mg PO DAILY 02/20/23 02/20/23 02/19/23 History Allergies Allergy/AdvReac Type Severity Reaction Status Date / Time No Known Allergies Allergy Verified 02/20/23 10:43 PFSH Acute PFSH: Medical History Hypertension Type 2 diabetes mellitus Surgical History No significant past surgical history Family History Other CAD (coronary artery disease) Hypertension Stroke Social History Smoking and tobacco status: former smoker Alcohol intake: current Alcohol intake frequency: few times a week Substance/Drug Use: never Caregiver/support person: Yes Lives independently: Yes Household members: spouse Housing: House Marital status: Current occupational status: retired Vitals/I&O/Wt Last Vital Signs Pulse 67 02/20/23 15:59 Resp 16 02/20/23 15:59 BP 100/53 02/20/23 15:59 Pulse Ox 98 02/20/23 15:59 O2 Del Method Nasal Cannula 02/20/23 13:15 O2 Flow Rate 2 02/20/23 13:15 02/20/23 02/20/23 02/20/23 06:59 14:59 22:59 Intake Total 1000 / 1000 Balance 1000 / 1000 Weight last 48 hrs Weight 88.451 kg Physical Exam Const: COMMON NORMALS: no acute distress and patient oriented x3 GENERAL APPEARANCE: cooperative, well kempt and well developed HENMT: COMMON NORMALS: normocephalic and Normal external nose present HEAD & SCALP: normocephalic FACE & SINUS: normal facial exam NOSE: Normal external nose present Eye: COMMON NORMALS: Equal, round and reactive pupils present, EOMs intact bilaterally, conjunctivae normal and no scleral icterus CONJUNCTIVA: Yes conjunctivae normal PUPIL: Yes Equal, round and reactive pupils present Neck/C-Spine: COMMON NORMALS: full ROM, no lymphadenopathy, no meningeal signs, no JVD and No carotid bruits Lymph: LYMPHATIC: no lymphadenopathy noted Chest: COMMONS NORMALS: normal inspection of the chest Resp: COMMON NORMALS: normal respiratory effort, No retractions, No use of accessory muscles and clear to auscultation bilaterally AUSCULTATION: clear to auscultation bilaterally Cardio: COMMON NORMALS: regular rate, regular rhythm, S1 normal heart sound present, S2 normal heart sound present, No murmurs present (Cardio) and Peripheral pulses 2+ throughout RATE: regular rate RHYTHM: regular rhythm HEART SOUNDS: S1 normal heart sound present and S2 normal heart sound present PERIPHERAL PULSES: Peripheral pulses 2+ throughout GI: COMMON NORMALS: Normal to inspection, nondistended, normoactive bowel sounds present, Soft to palpation and non-tender OTHER: Abdomen, umbilical hernia, no overlying skin changes, reducible, not painful : BLADDER/KIDNEY EXAM: Yes no CVA tenderness Back/Pelvis: COMMON NORMALS: no CVA tenderness Extremity: COMMON NORMALS: normal to inspection, no calf tenderness and no pedal edema NARRATIVE EXTREMITY EXAM: Very mild left hand weakness, slight flexion contracture Neuro: COMMON NORMALS: patient oriented x3, CN's II-XII intact bilaterally, moves all extremities, no focal motor deficits and no sensory deficits noted MENINGEAL SIGNS: Yes no meningeal signs Psych: COMMON NORMALS: mental status grossly normal, Normal thought process present, cooperative and speech normal APPEARANCE: Yes well kempt SPEECH: Yes normal speech THOUGHT PROCESS: Normal thought process present Skin: COMMON NORMALS: turgor normal and no jaundice GENERAL SKIN EXAM: turgor normal Data 02/20/23 12:36 02/20/23 12:36 CXR: My impression: Enlarged heart, cannot see left lung base, cannot rule out underlying pneumonia, no focal infiltrates EKG 1: My Interpretation: Sinus bradycardia, Q waves in anterior and inferior leads A&P Assessment and plan (1) Closed left humeral fracture: Qualifiers: Encounter type: initial encounter Humerus Location: greater tuberosity (2) Syncopal episodes: (3) Leukocytosis: Qualifiers: Leukocytosis type: unspecified Qualified Code(s): D72.829 - Elevated white blood cell count, unspecified (4) Elevated troponin: (5) Vasovagal syncope: (6) Elevated lactic acid level: Plan Syncope -Sounds like a vasovagal event -Currently blood pressures 130s over 60s sitting at the side of bed asymptomatic, no chest pain, palpitations, lightheadedness, dizziness, no strokelike symptoms -Continue IV fluids at 75 cc an hour -Repeat of orthostats every 8 hours -Telemetry monitoring -Serial EKGs, serial troponins, telemetry monitoring -Cardiac echo -Carotid artery ultrasound Elevated troponins -No chest pain complaints -Serial EKGs, serial troponins, telemetry monitoring -First troponin 20, EKG sinus bradycardia with Q waves in anterior lateral leads Elevated lactic acid -Monitor, IV fluids, Leukocytosis -Likely reactive -Chest x-ray enlarged heart, cannot see left lung base, cannot rule out underlying pneumonia, although no respiratory complaints, is on 2 L, Pro-Timoteo and CRP within normal limits will monitor for now -UA pending -No abdominal pain -We will monitor -CRP, Pro-Timoteo within normal limits Dehydration, creatinine 1.1 IV fluids Calcium 7.7, check PTH, vitamin D, ionized calcium Humeral fracture, conservatively manage Attestations Medical Necessity Statement*: Patient requires hospitalization, outpatient observation for syncopal episode, elevated troponins, leukocytosis, elevated lactic acid Diagnoses Closed left humeral fracture S42.302A Encounter type: initial encounter Humerus Location: greater tuberosity Syncopal episodes R55 Leukocytosis D72.829 Leukocytosis type: unspecified Elevated troponin R77.8 Vasovagal syncope R55 Elevated lactic acid level R79.89
[2023-02-20] MEDS: enoxaparin 40 mg/0.4 mL Syringe SUBCUT (17:20)
[2023-02-20] MEDS: sodium chloride 0.9% 1,000 ML 75 ML IV (17:21)
[2023-02-20 17:40] LABS: Glucose Point of Care 248 mg/dL (70-110)
[2023-02-20] MEDS: insulin lispro 100 unit/1 mL SUBCUT (17:59)
[2023-02-20 18:07] LABS: Estmated Average Glucose 166; Hemoglobin A1C 7.4 % (4.0-6.0)
[2023-02-20 18:13] LABS: Calcium 9.9 mg/dL (8.5-10.5)
[2023-02-20 18:20] LABS: Parathyroid Hormone 34.9 pg/mL (15-65)
[2023-02-20 18:31] LABS: 25 Hydroxy Vitamin D 27 ng/mL (30-100); Chol HDL Ratio 2.66 mg/dL (1.0-5.00); Cholesterol 93 mg/dL (0-200); HDL Cholesterol 35 mg/dL (60-100); LDL Cholesterol Calculated 41 mg/dL (50-129); LDL HDL Ratio 1.17 RATIO (0.00-3.22); Thyroid Stimulating Hormone 2.11 uIU/mL (0.27-4.20); Triglycerides 86 mg/dL (0-150)
[2023-02-20 19:30] LABS: Lactic Acid level (Lactate) 3.2 mmol/L (0.5-2.2)
[2023-02-20 19:35] LABS: Troponin(5th) Baseline 21 ng/L (0-15)
[2023-02-20 19:38] LABS: Add Urine Microscopic? NO; Charge for UA Resulting for Rev
[2023-02-20 19:59] LABS: Bilirubin Urine Neg (Negative); Blood Urine Neg (Negative); Glucose Urine UA 4+ (Normal); Ketones Urine Negative (Negative); Leukocyte Esterase Urine Negative (Negative); Nitrate Urine Negative (Negative); Protein Urine Neg (Negative); Specific Gravity, Urine 1.015 (1.005-1.030); Urine Appearance Clear (CLEAR); Urine Color Yellow (Yellow); Urobilinogen Urine Norm (Negative); pH Urine 5 (5-7)
[2023-02-20 20:47] LABS: Glucose Point of Care 294 mg/dL (70-110)
--- NOTE | 2023-02-20 22:08 | ECG_ITS ---
[facility] Test Date: 2023-02-20 Pat Name: Eliazar Gomez Department: Room: 271 Gender: Male Materials Specialist: : 1960 Requested By: Brooks Prieto Order Number: [id number] Mellissa MD: Ameya Woods M.D. Measurements Intervals [place] Rate: 81 P: 39 SD: 172 QRS: -7 QRSD: 77 T: 10 QT: 350 QTc: 407 Interpretive Statements SINUS RHYTHM SEPTAL MYOCARDIAL INFARCTION , PROBABLY OLD [40+ ms Q WAVE IN V1/V2] Compared to ECG 02/20/2023 16:42:31 No significant changes Electronically Signed On 02-21-2023 8:35:38 CDT by Ameya Woods M.D. [email or web address] Health Management Servicescleveland clinic [facility].[email or web address]/store/[id number]
[2023-02-21 01:21] LABS: Troponin 5 6HR 20.52 ng/L (0-15)
[2023-02-21 01:28] LABS: Troponin 5 6HR Delta -0.48 ng/L (0-12)
[2023-02-21 03:23] VITALS: BP 113/69; PULSE 87; RESP 13; TEMP 37; O2SAT 93
[2023-02-21 03:29] LABS: Basophils % 0.2 %; Eosinophils # 0.1 10^3/uL (0.0-0.8); Eosinophils % 0.8 %; Hematocrit 37.4 % (42.0-52.0); Hemoglobin 12.2 g/dL (11.7-16.6); Lymphocytes # 1.8 10^3/uL (0.8-4.8); Lymphocytes % 14.4 %; Mean Corpuscular HGB Conc 32.6 g/dL (30.0-36.0); Mean Corpuscular Hemoglobin 30.7 pg (28.0-34.0); Mean Corpuscular Volume 94.2 fl (80-94); Mean Platelet Volume 10.1 fL (7.4-10.4); Monocytes # 1.2 10^3/uL (0.2-0.9); Monocytes % 9.9 %; Neutrophils # 9.31 10^3/uL (1.8-7.7); Neutrophils % 74.1 %; Nucleated Red Blood Cells % 0 %; Platelet Count 240 10^3/cmm (130-400); Red Blood Count 3.97 10^6/uL (4.1-5.3); Red Cell Distribution Width 13.5 % (12.1-15.1); White Blood Count 12.6 10^3/uL (4.0-10.0)
[2023-02-21 03:47] LABS: Alanine Aminotransferase 47 U/L (0-41); Albumin Level 4.4 g/dL (3.5-5.2); Alkaline Phosphatase 79 U/L (40-130); Anion Gap 18.6 (5-19); Aspartate Amino Transferase 15 U/L (0-40); Blood Urea Nitrogen 16 mg/dL (8-23); Calcium 9.4 mg/dL (8.5-10.5); Carbon Dioxide 20 mmol/L (22-29); Chloride 105 mmol/L (98-107); Globulin 1.6 g/dL (1.3-4.6); Glucose 167 mg/dL (65-115); Magnesium 1.8 mg/dL (1.7-2.3); Osmolality Calculated 293 mOsm/kg (285-295); Potassium 4.6 mmol/L (3.5-5.1); Sodium 139 mmol/L (136-145); Total Bilirubin 0.7 mg/dL (0.15-1.2)
[2023-02-21 05:07] LABS: Reflex Lactate Order REFLEX LACTIC ORDERD
[2023-02-21] MEDS: sodium chloride 0.9% 1,000 ML 75 ML IV (05:35)
[2023-02-21 06:00] VITALS: PULSE 84
[2023-02-21 06:24] LABS: Glucose Point of Care 146 mg/dL (70-110)
--- NOTE | 2023-02-21 07:44 | DCPLANNER ---
Addendum entered by Agustina Garza 03/02/23 10:38: Patient had a follow up appointment scheduled with ortho - patient did attend appointment. Original Note: pharmacy informatics manager had message to schedule a follow up appointment for patient with ortho. pharmacy informatics manager sent patients information to the front office staff at ortho. Patients information will be printed and reviewed. Clinic will call patient with appointment information.
[2023-02-21 07:48] VITALS: BP 143/76; PULSE 86; RESP 18; TEMP 36.3; O2SAT 95
[2023-02-21 08:00] VITALS: BP 107/70; BP 123/79; BP 135/85; PULSE 78; PULSE 86; PULSE 96
[2023-02-21] MEDS: atorvastatin 40 mg Tablet 80 MG PO (08:09)
[2023-02-21] MEDS: insulin lispro 100 unit/1 mL SUBCUT (08:09)
[2023-02-21] MEDS: multivitamin therapeutic Tablet 1 TAB PO (08:09)
[2023-02-21] MEDS: pantoprazole DR 40 mg Tablet PO (08:09)
[2023-02-21] MEDS: clopidogrel 75 mg Tablet PO (08:26)
--- NOTE | 2023-02-21 11:32 | P.DS_ITS ---
Discharge Providers Date of Admission: 02/20/23 15:28 Date of Discharge: February 21, 2023 Attending Provider at Admission: Brooks Prieto MD Attending Provider at Discharge: Alo Leon Primary Care Provider: Edgardo Pond DO Diagnoses at Discharge Discharge Diagnosis (1) Closed left humeral fracture: Status: Acute Qualifiers: Encounter type: initial encounter Humerus Location: greater tuberosity (2) Syncopal episodes: Status: Acute (3) Leukocytosis: Status: Acute Qualifiers: Leukocytosis type: unspecified Qualified Code(s): D72.829 - Elevated white blood cell count, unspecified (4) Elevated troponin: Status: Acute (5) Vasovagal syncope: Status: Acute (6) Elevated lactic acid level: Status: Acute Reason for Visit Reason for Visit: fall, neck and left shoulder pain Hospital Course Hospital Course 63-year-old gentleman 63-year-old gentleman with history of CVA, DM 2, was in the hospital after 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 Tabetic service was contacted with recommendation for management with sling, consider interventions and follow-up as outpatient as he was ready to discharge she had an episode of lightheadedness and presyncope, he denies actually passing out, although at the time it was thought he did, with eyes rolled back and lack of responsiveness. Hypotensive at the time blood pressure 90s/40s. Received bolus of fluid. Blood pressures improved. Suspected secondary to dehydration, vasovagal combination. Underwent assessment with troponin EKG series, mild elevation of troponin up to 20s without peak, he remained chest pain-free, no suggestion of acute cardiac ischemia. Echocardiogram was ordered, but usable views could not be obtained and he cannot lay on the left side. Discussed with him obtaining a MUGA scan, he declines further work-up in the hospital and request to be discharged, he is agreeable to follow-up on this outpatient. He understands the purpose of cardiac work-up with syncope to rule out potentially life-threatening underlying undiagnosed etiology. He additionally was assessed with carotid Doppler ultrasound which showed mild progression carotid atherosclerosis since prior exam, left ICA stenosis 55 to 69%, right ICA stenosis less than 50%. He continues on atorvastatin, Plavix with history of prior CVA. Please continue to optimize cardiovascular risk factors. On presentation with leukocytosis of 20,000, today down to 12.6, last night with lactic acidosis, which has improved. Suspected combination of stress, fracture, dehydration, otherwise no suggestion of acute infection. Chest x-ray suggestive pneumonia. UA was unremarkable. Today he is feeling well, denies any shortness of breath, cough, headache, nausea, vomiting, bloody or dark stools, difficulties with urination, any rashes or lower extremity swelling. We disc ussed in case of concerning symptoms to seek medical attention immediately. He is cautioned regarding fall prevention, encouraged to continue outpatient physical therapy. Follow-up with orthopedics regarding humeral fracture. Physical Exam Const: COMMON NORMALS: patient oriented x3 and alert GENERAL APPEARANCE: cooperative ORIENTATION/CONSCIOUSNESS: Yes awake HENMT: COMMON NORMALS: oropharynx normal Neck/C-Spine: COMMON NORMALS: no JVD Resp: COMMON NORMALS: normal respiratory effort and clear to auscultation bilaterally AUSCULTATION: clear to auscultation bilaterally Cardio: COMMON NORMALS: no JVD, regular rhythm, S1 normal heart sound present, S2 normal heart sound present and No murmurs present (Cardio) RHYTHM: regular rhythm HEART SOUNDS: S1 normal heart sound present and S2 normal heart sound present GI: COMMON NORMALS: Normal to inspection, nondistended, normoactive bowel sounds present, Soft to palpation and non-tender PALPATION: Yes Soft to palpation Extremity: COMMON NORMALS: no joint enlargement and no pedal edema OTHER: LUE sling Neuro: COMMON NORMALS: patient oriented x3 and moves all extremities SENSORIUM/ORIENTATION: Yes alert Skin: COMMON NORMALS: no rashes or lesions noted GENERAL SKIN EXAM: no rashes or lesions noted Discharge Data Studies Completed and Pending Completed Studies During Hospitalization Category Date Time Status CT head wo con* [id number] Stat Cat Scan 02/20/23 10:52 Completed XR chest 1V portable [id number] Stat Exams 02/20/23 13:01 Completed XR shoulder LT min 2V* [id number] Stat Exams 02/20/23 10:52 Completed CV carotid duplex BI* [id number] Routine Ultrasound 02/21/23 16:25 Completed Pending at discharge Category Date Time Status Blood Culture Stat Lab 02/20/23 18:20 Results Complete Blood Count w/Auto AM LABS Lab 02/22/23 04:00 Ordered Complete Blood Count w/Auto AM LABS Lab 02/23/23 04:00 Ordered Comprehensive Metabolic Panel AM LABS Lab 02/22/23 04:00 Ordered Comprehensive Metabolic Panel AM LABS Lab 02/23/23 04:00 Ordered Magnesium AM LABS Lab 02/22/23 04:00 Ordered Magnesium AM LABS Lab 02/23/23 04:00 Ordered Radiology Impressions Head CT 02/20/23 10:52 IMPRESSION: No acute intracranial abnormality. Shoulder X-Ray 02/20/23 10:52 IMPRESSION: Fracture of the left greater humeral tuberosity. Chest X-Ray 02/20/23 13:01 IMPRESSION: Negative portable chest. Laboratory Results WBC 12.6 10^3/uL (4.0-10.0) H 02/21/23 02:53 RBC 3.97 10^6/uL (4.1-5.3) L 02/21/23 02:53 Hgb 12.2 g/dL (11.7-16.6) 02/21/23 02:53 Hct 37.4 % (42.0-52.0) L 02/21/23 02:53 MCV 94.2 fl (80-94) H 02/21/23 02:53 MCH 30.7 pg (28.0-34.0) 02/21/23 02:53 MCHC 32.6 g/dL (30.0-36.0) 02/21/23 02:53 RDW 13.5 % (12.1-15.1) 02/21/23 02:53 Plt Count 240 10^3/cmm (130-400) 02/21/23 02:53 MPV 10.1 fL (7.4-10.4) 02/21/23 02:53 Neut % (Auto) 74.1 % 02/21/23 02:53 Lymph % (Auto) 14.4 % 02/21/23 02:53 [place] % (Auto) 9.9 % 02/21/23 02:53 Eos % (Auto) 0.8 % 02/21/23 02:53 Baso % (Auto) 0.2 % 02/21/23 02:53 Neut # (Auto) 9.31 10^3/uL (1.8-7.7) H 02/21/23 02:53 Lymph # (Auto) 1.8 10^3/uL (0.8-4.8) 02/21/23 02:53 [place] # (Auto) 1.2 10^3/uL (0.2-0.9) H 02/21/23 02:53 Eos # (Auto) 0.1 10^3/uL (0.0-0.8) 02/21/23 02:53 Baso # (Auto) 0.0 10^3/uL (0.0-0.1) 02/21/23 02:53 Nucleated RBC % (auto) 0 % 02/21/23 02:53 Nucleated RBCs # 0.0 /100WBC 02/21/23 02:53 Sodium 139 mmol/L (136-145) 02/21/23 02:53 Potassium 4.6 mmol/L (3.5-5.1) 02/21/23 02:53 Chloride 105 mmol/L (98-107) 02/21/23 02:53 Carbon Dioxide 20 mmol/L (22-29) L 02/21/23 02:53 Anion Gap 18.6 (5-19) 02/21/23 02:53 BUN 16 mg/dL (8-23) 02/21/23 02:53 Creatinine 1.0 mg/dL (0.7-1.2) 02/21/23 02:53 GFR Calculation 75.0 mL/min (90-130) L 02/21/23 02:53 Glucose 167 mg/dL (65-115) H 02/21/23 02:53 POC Glucose 146 mg/dL (70-110) H 02/21/23 06:12 Estimat Average Glucose 166 02/20/23 12:36 Hemoglobin A1c 7.4 % (4.0-6.0) H 02/20/23 12:36 Calculated Osmolality 293 mOsm/kg (285-295) 02/21/23 02:53 Lactic Acid 3.0 mmol/L (0.5-2.2) H 02/21/23 02:53 Lactic Acid (Sepsis) 1.0 mmol/L (0.5-2.2) 02/21/23 Unknown Calcium 9.4 mg/dL (8.5-10.5) 02/21/23 02:53 Magnesium 1.8 mg/dL (1.7-2.3) 02/21/23 02:53 Total Bilirubin 0.7 mg/dL (0.15-1.2) 02/21/23 02:53 AST 15 U/L (0-40) 02/21/23 02:53 ALT 47 U/L (0-41) H 02/21/23 02:53 Alkaline Phosphatase 79 U/L (40-130) 02/21/23 02:53 Creatine Kinase 100 U/L (39-308) 02/20/23 12:36 Troponin T Baseline 21 ng/L (0-15) H 02/20/23 18:20 Troponin T 120 Minute 20.10 ng/L (0-15) H 02/20/23 20:26 Delta Troponin T -0.90 ABS# (0-10) L 02/20/23 20:26 Troponin T Hi Sens 6Hr 20.52 ng/L (0-15) H 02/21/23 00:59 Troponin T Hi Sens 6Hr Delta -0.48 ng/L (0-12) L 02/21/23 00:59 C-Reactive Protein 3.0 mg/L (0.0-4.9) 02/20/23 12:36 Total Protein 6.0 g/dL (6.6-8.7) L 02/21/23 02:53 Albumin 4.4 g/dL (3.5-5.2) 02/21/23 02:53 Globulin 1.6 g/dL (1.3-4.6) 02/21/23 02:53 Triglycerides 86 mg/dL (0-150) 02/20/23 12:36 Cholesterol 93 mg/dL (0-200) 02/20/23 12:36 LDL Cholesterol, Calc 41 mg/dL (50-129) L 02/20/23 12:36 HDL Cholesterol 35 mg/dL (60-100) L 02/20/23 12:36 LDL/HDL Ratio 1.17 RATIO (0.00-3.22) 02/20/23 12:36 Cholesterol/HDL Ratio 2.66 mg/dL (1.0-5.00) 02/20/23 12:36 25-OH Vitamin D Total 27 ng/mL (30-100) L 02/20/23 12:36 Procalcitonin 0.08 ng/mL (0-0.5) 02/20/23 12:36 TSH 2.11 uIU/mL (0.27-4.20) 02/20/23 12:36 Prolactin 19.11 ng/mL (4.0-15.2) H 02/20/23 12:36 PTH Intact 34.9 pg/mL (15-65) 02/20/23 12:36 Calcium (PTH Intact) 9.9 mg/dL (8.5-10.5) 02/20/23 12:36 Urine Color Yellow (Yellow) 02/20/23 19:15 Urine Appearance Clear (CLEAR) 02/20/23 19:15 Urine pH 5 (5-7) 02/20/23 19:15 Ur Specific [place] 1.015 (1.005-1.030) 02/20/23 19:15 Urine Protein Neg (Negative) 02/20/23 19:15 Urine Glucose (UA) 4+ (Normal) H 02/20/23 19:15 Urine Ketones Negative (Negative) 02/20/23 19:15 Urine Blood Neg (Negative) 02/20/23 19:15 Urine Nitrate Negative (Negative) 02/20/23 19:15 Urine Bilirubin Neg (Negative) 02/20/23 19:15 Urine Urobilinogen Norm mg/dL (Negative) 02/20/23 19:15 Ur Leukocyte Esterase Negative (Negative) 02/20/23 19:15 Vitals Last Vital Signs Temp 97.3 F L 02/21/23 07:48 Pulse 78 02/21/23 08:00 Resp 18 02/21/23 07:48 BP 107/70 02/21/23 08:00 Pulse Ox 95 02/21/23 07:48 O2 Del Method Room Air 02/21/23 07:48 O2 Flow Rate 2 02/20/23 13:15 Discharge Plan Discharge Patient Disposition: Home Condition: Stable Prescriptions: New hydrocodone-acetaminophen 5-325 mg tablet 1 tab PO Q6H PRN (Reason: pain) Qty: 20 0RF Continued multivitamin Tablet 1 tab PO DAILY fluticasone propionate 50 mcg/actuation spray,suspension 2 spray INTRANASAL DAILY PRN (Reason: Allergic Symptoms) atorvastatin 80 mg tablet 80 mg PO DAILY glipizide 10 mg tablet extended release 24hr 10 mg PO DAILY clopidogrel 75 mg tablet 75 mg PO DAILY magnesium 250 mg Tablet 250 mg PO DAILY lisinopril 40 mg tablet 40 mg PO DAILY Discharge Orders: Discharge Order (Routine); Ordered 02/21/23 Ordered By: Alo Leon Other Ambulatory Orders: [place] [id number] (Routine) Timeframe: 2 Days Facility: [facility] - Location: Radiology Ordered By: Alo Leon Referrals: Edgardo Pond DO [Primary Care Provider] - 03/02/23 11:40 am Angela Weaver MD [Physician] - 1 week (DR WEAVER OFFICE WILL CALL WITH APPOINTMENT) Discharge Diet: Cardiac and Diabetic Discharge Activity: Limit activity as instructed and As per PT/OT instructions Patient Instructions: Type 2 Diabetes, Hydrocodone/Acetaminophen (By mouth), Fractures - Humerus, Carotid Artery Disease (GEN), Near Syncope (GEN), Fall Prevention (GEN), High Troponin Levels (ED), Opioid Safety, Pain Management Activity Restrictions/Additional Instructions: Wear sling as discussed. Take medication for pain as needed. Apply ice to reduce pain and swelling. Follow-up with Ortho as discussed in the coming week. Return to the ER with new or worsening symptoms. Please also follow-up with your primary doctor regarding near syncope episode and assessment of your cardiac function with MUGA scan for which you are referred. Please discuss as well regarding mild troponin elevation, continued optimization of cardiovascular risk factors. Please discuss with your primary doctor regarding carotid artery disease, left internal carotid artery with noted moderate stenosis, 50-69%, right internal carotid artery less than 50%, mild progression of carotid arthrosclerosis compared to prior exam. Seek medical attention immediately in case of any worsening or new concerning symptoms. Continue outpatient physical therapy. Discharge Attestations Time Spent in Discharge Care*: greater than 30 min Quality Metrics Clinical Quality Measures [ No reported AMI, CVA or VTE this stay] Coding Level of Care Code 03844 Total time (in minutes) for Discharge: 50 Diagnoses Closed left humeral fracture S42.302A Encounter type: initial encounter Humerus Location: greater tuberosity Syncopal episodes R55 Leukocytosis D72.829 Leukocytosis type: unspecified Elevated troponin R77.8 Vasovagal syncope R55 Elevated lactic acid level R79.89
[2023-02-21 11:52] VITALS: BP 143/76; PULSE 86; RESP 18; TEMP 36.3; O2SAT 95
--- NOTE | 2023-02-21 16:25 | USCV_ITS ---
JasonEliazar carlson Age: 63 Gender: M : 1960 Exam Date: 02/21/2023 06:50 Ordering Phys: Brooks Prieto MD Technologist: ANA Exam Location: [facility] [place] Indication: SYNCOPE Risk Factors: Previous Vascular Surgery: Right Brachial BP: / Left Brachial BP: / Right Left Velocity (cm/s) Spectral Plaque Velocity (cm/s) Spectral Plaque Syst/Diast Broadening Syst/Diast Broadening 83.80/ 18.70 Prox CCA 132.60/ 30.00 122.40/22.10 Mid CCA 128.40/ 27.10 126.80/24.30 Distal CCA 158.30/ 38.50 120.70/33.80 Prox ICA 198.20/ 49.50 109.80/35.00 Mid ICA 192.50/ 57.60 95.10/ 37.80 Distal ICA 90.60 / 33.50 177.10 ECA 176.90 0.95 ICA/CCA 1.25 Antegrade Vertebral Antegrade 48.70/ 12.80 cm/s 61.50/ 20.10 cm/s Tri Subclavian Tri 198.3 261.7 0 0 FINDINGS Comparison:. 01/12/22. Diffuse bilateral scattered calcified plaque and intimal thickening throughout the common carotid arteries and extending through the bifurcation. Greater plaque on the left with greater velocity also. Mild progression of atherosclerotic disease since the prior exam. Antegrade vertebral arteries. CONCLUSIONS Left ICA stenosis 50-69%. Right ICA stenosis < 50%. Mild progresssion carotid atherosclerosis since the prior exam. Dr. Corine Storm DO (Electronically Signed) Final Date: 21 February 2023 08:21 S
== END 2023-02-21 11:55 | disposition home or self-care (01) ==
LOC: ER 15:27 → MEDSURG 16:00
PROVIDERS: Admitting Provider Family Medicine; Emergency Provider Physician Assistant; PCP Electrodiagnostic Medicine; Visit Provider Internal Medicine
DX: S42.252A Displaced fracture of greater tuberosity of left humerus, initial encounter for closed fracture (principal); W20.8XXA Other cause of strike by thrown, projected or falling object, initial encounter; Y92.73 Farm field as the place of occurrence of the external cause; R09.02 Hypoxemia; Z86.73 Personal history of transient ischemic attack (TIA), and cerebral infarction without residual deficits; E11.9 Type 2 diabetes mellitus without complications; I95.9 Hypotension, unspecified; I65.23 Occlusion and stenosis of bilateral carotid arteries; D72.829 Elevated white blood cell count, unspecified; E87.20 Acidosis, unspecified; Z87.891 Personal history of nicotine dependence; R00.1 Bradycardia, unspecified; R94.31 Abnormal electrocardiogram [ECG] [EKG]; I51.7 Cardiomegaly; R55 Syncope and collapse; Z79.899 Other long term (current) drug therapy
CPT/HCPCS: 36415; 36416; 70450; 71045; 73030; 80053; 80061; 81003; 82306; 82310; 82550; 82962; 83036; 83605; 83735; 83970; 84145; 84146; 84443; 84484; 85025; 86140; 87040; 93005; 93880; 94664; 96360; 96361; 96372; 99285; G0378; J1650; J1815; J7030

== ENCOUNTER → 2023-02-22 13:30 | Outpatient (BNVA) | payer MEDICARE, SELFPAY | PROVIDERS: PCP Electrodiagnostic Medicine; Referring Provider Family Medicine; Visit Provider Specialist | DX: S42.302A Unspecified fracture of shaft of humerus, left arm, initial encounter for closed fracture (principal); W20.8XXA Other cause of strike by thrown, projected or falling object, initial encounter; Y92.79 Other farm location as the place of occurrence of the external cause | CPT/HCPCS: 24500; 99204; L3670 ==

== ENCOUNTER → 2023-03-14 14:36 | Outpatient (BNVA) | payer MEDICARE, SELFPAY | PROVIDERS: PCP Electrodiagnostic Medicine; Visit Provider Specialist | DX: S42.302A Unspecified fracture of shaft of humerus, left arm, initial encounter for closed fracture (principal); M25.522 Pain in left elbow; X58.XXXA Exposure to other specified factors, initial encounter | CPT/HCPCS: 73030; 73080; 99213 ==

== ENCOUNTER → 2023-04-11 13:50 | Outpatient (BNVA) | payer MEDICARE, SELFPAY | PROVIDERS: PCP Electrodiagnostic Medicine; Visit Provider Specialist | DX: S42.252D Displaced fracture of greater tuberosity of left humerus, subsequent encounter for fracture with routine healing; X58.XXXD Exposure to other specified factors, subsequent encounter | CPT/HCPCS: 73030; 99024 ==

== ENCOUNTER → 2023-06-06 14:22 | Outpatient (BNVA) | payer MEDICARE, SELFPAY | PROVIDERS: PCP Electrodiagnostic Medicine; Visit Provider Specialist | DX: S42.302D Unspecified fracture of shaft of humerus, left arm, subsequent encounter for fracture with routine healing (principal); X58.XXXD Exposure to other specified factors, subsequent encounter | CPT/HCPCS: 73030; 99213 ==